=== PATIENT | female | born 1930 | race Caucasian/White ===

== ENCOUNTER 2020-09-05 14:29 | Inpatient (IN) | payer MEDICARE, OTHER ==
[~2020-09-05] VITALS: Ht 165.1 cm; Wt 54.6 kg
[~2020-09-05 14:29] MED LIST: ACET-868 PO; ALPR1TAB2 PO; AMIN887L7 PO; AMLO2.5T2 PO; AZAT50TA18 PO; BISA10SU11 RC; BROM1.7D9 EACHEYE; CALC500T63 PO; CHOL100040 PO; CITR30SO PO; CLON0.3P TD; DOCU-141 PO; FOLI0.8T2 PO; HYDR-4076 PO; LEVO50TA8 PO; MIRT15TA7 PO; NUT.237L85 PO; OMEG-88 PO; OMEP20CA15 PO; POLY15DR40 EACHEYE; SENN-261 PO
--- NOTE | 2020-09-05 14:39 | NUR ---
papo, from HD center, low bp 79/40, BS 243. On room air, connected to the monitor and pulse ox. kept comfortable, will continue to monitor accordingly.
[2020-09-05] MEDS ORDERED: ALBU2.5V38 NEB (15:00)
[2020-09-05] MEDS ORDERED: IV NS 0.9% 1,000 ML BAG IV ONE (15:00)
[2020-09-05] MEDS ORDERED: MEROPENEM 1 G in IV NS 0.9% 100 ML IV ONE (15:00)
[2020-09-05] MEDS ORDERED: VANCOMYCIN 1 GM in IV D5W 250 ML IV ONE (15:00)
[2020-09-05 15:01] LABS: BASOPHILS # (AUTO) 0.1 /CMM (0.0-0.2); BASOPHILS % (AUTO) 1.3 % (0.0-2.0); EOSINOPHILS % (AUTO) 2.2 % (0.0-6.0); HEMATOCRIT 27 % (33-45); HEMOGLOBIN 8.6 g/dL (11.5-14.8); LYMPHOCYTES # (AUTO) 0.7 /CMM (0.8-4.8); LYMPHOCYTES % (AUTO) 16.3 % (20.0-44.0); MEAN CORPUSCULAR HGB CONC 32 g/dl (31.0-36.0); MEAN CORPUSCULAR VOLUME 86 fL (82-100); MONOCYTES # (AUTO) 0.3 /CMM (0.1-1.30); MONOCYTES % (AUTO) 6.3 % (2.0-12.0); NEUTROPHILS # (AUTO) 3.2 /CMM (1.8-8.9); NEUTROPHILS % (AUTO) 73.9 % (43.0-81.0); PLATELET COUNT (AUTO) 322 /CMM (150-450); WHITE BLOOD COUNT (AUTO) 4.3 K/uL (4.3-11.0)
--- NOTE | 2020-09-05 15:04 | NUR ---
urine collected and sent to lab
--- NOTE | 2020-09-05 15:07 | NUR ---
PT IS WHEELED TO CT SCAN VIA [facility].
[2020-09-05 15:23] LABS: BILIRUBIN,URINE MODERATE (NEGATIVE); COLOR,URINE BROWN (YELLOW); LEUKOCYTE ESTERASE ,URINE MODERATE (NEGATIVE); NITRITE, URINE NEGATIVE (NEGATIVE); PH,URINE 6.5 (5.0-8.0); PROTEIN,URINE >=300 mg/dl (NEGATIVE); UGLUCOSE NEGATIVE (NEGATIVE); UROBILINOGEN,URINE 0.2 EU/dL (0.2)
[2020-09-05 15:30] LABS: CALCIUM, SERUM 8.6 mg/dL (8.5-10.1); CARBON DIOXIDE 24 mmol/L (21-32); CHLORIDE 101 mmol/L (98-107); CREATININE 5.5 mg/dL (0.6-1.3); GLUCOSE 138 mg/dL (74-106); POTASSIUM 4.1 mmol/L (3.5-5.1); SODIUM SERUM 137 mmol/L (136-145); UREA NITROGEN, BLOOD 25 mg/dL (7-18)
[2020-09-05 15:43] LABS: ALANINE AMINOTRANSFERASE < 6 U/L (12-78); ALBUMIN 1.9 g/dL (3.4-5.0); ALKALINE PHOSPHATASE 55 U/L (46-116); ASPARTATE AMINOTRANSFERASE 13 U/L (15-37); BILIRUBIN,DIRECT 0.1 mg/dL (0.0-0.2); BILIRUBIN,TOTAL 0.3 mg/dL (0.2-1.0); TOTAL PROTEIN, SERUM 6.5 g/dL (6.4-8.2)
[2020-09-05 15:50] LABS: RBC,URINE 21-50 /HPF (0-2); WBC,URINE 21-50 /HPF (0-3)
[2020-09-05 15:51] LABS: BACTERIA,URINE Many /HPF (None Seen); SQUAMOUS EPITHELIAL CELL,UR Few /HPF (None Seen)
--- NOTE | 2020-09-05 16:27 | NUR ---
CALLED [facility] [place]
--- NOTE | 2020-09-05 17:00 | NUR ---
ROOM GIVEN 114-2
--- NOTE | 2020-09-05 17:01 | NUR ---
Swabed for covid and sent it to the lab.
--- NOTE | 2020-09-05 17:10 | NUR ---
REPORT GIVEN TO MELITON HERRERA FOR GASPER.
[2020-09-05] MEDS ORDERED: MAG HYDROX/AL HYDROX/SIMETH 30 ML UDC PO PRN (17:30)
[2020-09-05] MEDS ORDERED: Z GUARD REMEDY 2 OZ OINT TP PRN (17:30)
[2020-09-05] MEDS ORDERED: ALBUTEROL FS 2.5 MG/3 ML VIAL.NEB NEB PRN (17:30)
[2020-09-05] MEDS ORDERED: ONDANSETRON HCL/PF 4 MG/2 ML VIAL IVP PRN (17:30)
[2020-09-05] MEDS ORDERED: ALPRAZOLAM 1 MG TABLET PO PRN (17:30)
[2020-09-05] MEDS ORDERED: ZOLPIDEM TARTRATE 5 MG TABLET PO PRN (17:30)
[2020-09-05] MEDS ORDERED: MAGNESIUM HYDROXIDE 30 ML UDC PO PRN (17:30)
[2020-09-05] MEDS ORDERED: ACETAMINOPHEN 325 MG TABLET PO PRN (17:30)
[2020-09-05] MEDS ORDERED: HYDROCODONE/APAP 5/325MG TABLET PO PRN (17:30)
[2020-09-05] MEDS ORDERED: BISACODYL SUPP (10 MG) 10 MG/SUPP.RECT SUPP.RECT RC PRN (17:30)
--- NOTE | 2020-09-05 17:30 | NUR ---
AIRWAYS OPERATIONS SPECIALIST NOTE RECEIVED PATIENT , RT HAND HLINATCT AND FLUSHED WELL , BODY CHECK DONE , VS TAKEN , ON RA ,NO SOB NOTED AT THIS TIME FROM ER WITH DX HYPOTENSION, AWAKE WITH CONFUSION , PLACED ON TELE MONITOR SR HR, BED IN LOWEST AND LOCKED POSITION , CALL LIGHT WITHIN REACH , ADMITTED UNDER CARE DR MONTGOMERY, BELONGING AT BEDSIDE , PLAN OF CARE DISCUSSED WITH PATIENT, NO SOB NOTED AT THIS TIME, WILL CONT TO MONITOR
[2020-09-05 17:35] VITALS: BP 128/62
--- NOTE | 2020-09-05 19:13 | NUR ---
RECEIVED PT IN BED ASLEEP EASY TO WAKE UP A/O X1, CONFUSED ON ROOM AIR TOLERATING WELL . O2 SAT 96% AT THIS TIME. NO SOB NO RESP DISTRESS NOTED. ON TELE MONITORING NSR WITH HR OF 80. DENIES PAIN. RIGHT HAND #20 PATENT AND FLUSHED C D I.HAVE RU CHEST HD CATH CLEAN DRESSING IS INTACT, SAFETY MEASURES IN PLACE. HOB ELEVATED. SIDE RAILS UP X3. BED LOCKED IN LOWEST POSITION. BED ALARM ON. WILL CONT TO MONITOR
[2020-09-05 20:00] VITALS: BP 100/52
[2020-09-05] MEDS ORDERED: MEROPENEM 1 G in IV NS 0.9% 100 ML IV SCH (21:00)
[2020-09-05] MEDS: MIRTAZAPINE 15 MG TABLET PO SCH (21:04)
[2020-09-05] MEDS: CITRIC ACID/SODIUM CITRATE (BICITRA)15 ML UDC PO SCH (21:04)
[2020-09-05] MEDS: SENNOSIDES 8.6 MG TABLET PO SCH (21:04)
[2020-09-06] VITALS: BP 103/64
--- NOTE | 2020-09-06 03:50 | NUR ---
REPORTED TO SHANICE HERNANDES NP ONCALL ABOUT THE PT HR GOES TO 120-130'S, AND SBP ON THE LOW 100'S, BP 98/58 WITH ORDER TO GIVE 500ML NS BOLUS X1 AND COLLECT THE AM LABS NOW, NOTED AND CARRIED OUT
[2020-09-06 04:00] VITALS: BP 98/58
[2020-09-06] MEDS ORDERED: IV NS 0.9% 500 ML IV ONE (04:30)
[2020-09-06 04:54] LABS: BASOPHILS # (AUTO) 0.1 /CMM (0.0-0.2); BASOPHILS % (AUTO) 0.8 % (0.0-2.0); EOSINOPHILS % (AUTO) 0.1 % (0.0-6.0); HEMATOCRIT 30 % (33-45); HEMOGLOBIN 9.4 g/dL (11.5-14.8); LYMPHOCYTES # (AUTO) 0.1 /CMM (0.8-4.8); LYMPHOCYTES % (AUTO) 1.1 % (20.0-44.0); MEAN CORPUSCULAR HGB CONC 32 g/dl (31.0-36.0); MEAN CORPUSCULAR VOLUME 85 fL (82-100); MONOCYTES # (AUTO) 0.3 /CMM (0.1-1.30); MONOCYTES % (AUTO) 2.8 % (2.0-12.0); NEUTROPHILS # (AUTO) 10.4 /CMM (1.8-8.9); NEUTROPHILS % (AUTO) 95.2 % (43.0-81.0); PLATELET COUNT (AUTO) 376 /CMM (150-450); RED BLOOD CELL COUNT(AUTO) 3.47 MIL/uL (4.0-5.2); WHITE BLOOD COUNT (AUTO) 10.9 K/uL (4.3-11.0)
[2020-09-06 05:08] LABS: CALCIUM, SERUM 8.8 mg/dL (8.5-10.1); CARBON DIOXIDE 24 mmol/L (21-32); CHLORIDE 103 mmol/L (98-107); CREATININE 5.7 mg/dL (0.6-1.3); GLUCOSE 127 mg/dL (74-106); MAGNESIUM 1.8 mg/dL (1.8-2.4); POTASSIUM 4.1 mmol/L (3.5-5.1); SODIUM SERUM 139 mmol/L (136-145); UREA NITROGEN, BLOOD 25 mg/dL (7-18)
--- NOTE | 2020-09-06 05:49 | NUR ---
BP RECHECKED 110/63 HR 114 PT STILL CONFUSED NO SIGN OF RESPIRATORY DISTRESS SPO2 95% VIA ROOM AIR WILL CONT TO MONITOR
[2020-09-06 06:17] LABS: CHOLESTEROL 200 mg/dL (<200); HDL CHOLESTEROL 41 mg/dL (40-60); LDL 120 mg/dL (0-99); TRIGLYCERIDES 211 mg/dL (30-150)
--- NOTE | 2020-09-06 06:55 | NUR ---
PT ON BED ASLEEP EASY TO WAKE UP STILL A/O X1 VERY CONFUSED, ON ROOM AIR SPO2 94-97% NO SOB NOTED, TELE MONITOR STILL READS SINUS TACHYCARDIA HR 110-120'S, ALL NEEDS ATTENDED, BED ON LOWEST POSITION AND LOCKED SIDE RAILS UP X2 CALL LIGHT WITHIN REACH WILL ENDORSED TO AM SHIFT NURSE
--- NOTE | 2020-09-06 07:30 | NUR ---
RN OPENING NOTES Patient is alert and responsive to verbal and physical stimuli. No s/s of respiratory distress. No c/o pain or discomfort. Patient is noted with right hand 20 gauze with no s/s of bleeding or infiltration. Per report patient is NPO except meds. Will continue to monitor. Call light with in reach.
[2020-09-06 08:00] VITALS: BP 128/62
[2020-09-06] MEDS ORDERED: DHA PO SCH (09:00)
[2020-09-06] MEDS ORDERED: FISH OIL PO SCH (09:00)
[2020-09-06] MEDS: PROSOURCE / PROSTAT (PYXIS) 30 ML UDC PO SCH ×2 (09:00→17:00)
[2020-09-06] MEDS: NEPRO VAN 237 ML CAN PO SCH ×2 (09:00→17:00)
[2020-09-06] MEDS ORDERED: EPA PO SCH (09:00)
[2020-09-06] MEDS ORDERED: [UNRECOGNIZED DRUG - OTHER] PO SCH (09:00)
[2020-09-06] MEDS ORDERED: OMEGA PO SCH (09:00)
[2020-09-06] MEDS: CHOLECALCIFEROL 1,000 UNIT TABLET (VIT D3) PO SCH (09:30)
[2020-09-06] MEDS: VIT B CMPLX 3/FA/VIT C/BIOTIN 1 TAB TABLET PO SCH (09:30)
[2020-09-06] MEDS: DOCUSATE SODIUM 100 MG CAPSULE PO SCH (09:30)
[2020-09-06] MEDS: CITRIC ACID/SODIUM CITRATE (BICITRA)15 ML UDC PO SCH ×6 (09:30→21:04)
[2020-09-06] MEDS: PANTOPRAZOLE 40 MG TABLET.DR PO SCH (09:30)
[2020-09-06] MEDS: LEVOTHYROXINE SODIUM 137 MCG TABLET PO SCH (09:35)
[2020-09-06 09:47] LABS: THYROID STIMULATING HORMONE 21.545 uIU/mL (0.358-3.74)
[2020-09-06] MEDS ORDERED: VANCOMYCIN 500 MG in IV D5W 100 ML IV PRN (10:00)
--- NOTE | 2020-09-06 10:00 | NUR ---
Received order from Dr Navas to change patient's diet to renal 60gm. Patient awake and alert, able to swallow without coughing.
[2020-09-06] MEDS: AZATHIOPRINE 50 MG TABLET PO SCH (11:53)
[2020-09-06] MEDS: POLYVINYL ALCOHOL 15 ML BOTTLE EACHEYE SCH ×3 (11:53→17:00)
[2020-09-06 12:00] VITALS: BP 126/65
[2020-09-06 16:00] VITALS: BP 128/60
[2020-09-06] MEDS: MEROPENEM 500 MG in IV NS 0.9% 50 ML IV SCH (17:04)
--- NOTE | 2020-09-06 19:15 | NUR ---
RECEIVED PT IN BED ASLEEP EASY TO WAKE UP A/O X1, CONFUSED ON ROOM AIR TOLERATING WELL . O2 SAT 93% AT THIS TIME. NO SOB NO RESP DISTRESS NOTED. ON TELE MONITORING NSR WITH HR OF 80. DENIES PAIN. RIGHT HAND #20 PATENT AND FLUSHED C D I.HAVE RU CHEST HD CATH CLEAN DRESSING IS INTACT, SAFETY MEASURES IN PLACE. HOB ELEVATED. SIDE RAILS UP X3. BED LOCKED IN LOWEST POSITION. BED ALARM ON. WILL CONT TO MONITOR
--- NOTE | 2020-09-06 19:18 | NUR ---
RN CLOSING NOTES Patient is alert and responsive to verbal and physical stimuli. No s/s of respiratory distress. No c/o pain or discomfort. Patient is noted with right hand 20 gauze with no s/s of bleeding or infiltration. Patient refused meal , offered x 3. Patient refused evening medication and started covering her face with sheet. Patient had HD done with output of 1600cc. Vancomycin hung post HD.Endorsed to next shift for GASPER.
[2020-09-06 20:00] VITALS: BP 111/52
[2020-09-06] MEDS: SENNOSIDES 8.6 MG TABLET PO SCH ×2 (21:04→21:10)
[2020-09-06] MEDS: MIRTAZAPINE 15 MG TABLET PO SCH ×2 (21:04→21:10)
--- NOTE | 2020-09-06 21:10 | NUR ---
UNABLE TO GIVE THE 2100 AND 0 MEDICATION PT REFUSING TO TAKE THE PO MEDICINE, SHE IS SPITTING IT OUT, PT IS VERY CONFUSED, KEEP ON DIRECTING BUT NO SUCCESS WILL CONT TO MONITOR THE PT
[2020-09-07] VITALS: BP 97/48
[2020-09-07 04:00] VITALS: BP 107/74
[2020-09-07 06:38] LABS: BASOPHILS # (AUTO) 0.1 /CMM (0.0-0.2); BASOPHILS % (AUTO) 0.7 % (0.0-2.0); EOSINOPHILS % (AUTO) 0.4 % (0.0-6.0); HEMATOCRIT 22 % (33-45); HEMOGLOBIN 7.1 g/dL (11.5-14.8); LYMPHOCYTES # (AUTO) 0.6 /CMM (0.8-4.8); LYMPHOCYTES % (AUTO) 5.8 % (20.0-44.0); MEAN CORPUSCULAR HGB CONC 33 g/dl (31.0-36.0); MEAN CORPUSCULAR VOLUME 84 fL (82-100); MONOCYTES # (AUTO) 0.5 /CMM (0.1-1.30); NEUTROPHILS # (AUTO) 8.6 /CMM (1.8-8.9); NEUTROPHILS % (AUTO) 88.1 % (43.0-81.0); PLATELET COUNT (AUTO) 310 /CMM (150-450); RED BLOOD CELL COUNT(AUTO) 2.58 MIL/uL (4.0-5.2); WHITE BLOOD COUNT (AUTO) 9.7 K/uL (4.3-11.0)
[2020-09-07 06:52] LABS: CALCIUM, SERUM 7.2 mg/dL (8.5-10.1); CARBON DIOXIDE 36 mmol/L (21-32); CHLORIDE 104 mmol/L (98-107); CREATININE 4.1 mg/dL (0.6-1.3); GLUCOSE 95 mg/dL (74-106); POTASSIUM 3.8 mmol/L (3.5-5.1); SODIUM SERUM 142 mmol/L (136-145); UREA NITROGEN, BLOOD 19 mg/dL (7-18)
--- NOTE | 2020-09-07 07:30 | NUR ---
RESEARCH DEVELOPMENT MANAGER AM NOTES RECEIVED PT IN BED, ASLEEP EASY TO WAKE UP A/O X1, CONFUSED ON 2L O2 NASAL CANULA. FARSI SPEAKING, O2 SAT 96% AT THIS TIME. NO SOB NO RESP DISTRESS NOTED. NSR ON MONITOR, HR 77. DENIES PAIN. RIGHT HAND #20 IV ACCESS, FLUSHES WELL, SITE CLEAR. RU CHEST HD CATH, CDI DRESSING, SEE NURSING FLOWSHEET FOR SKIN ISSUES, RENAL DIET, CRUSHED MEDS, NEEDS ASSIST IN TURNING AND REPOSITIONING, UNABLE TO UNDERSTAND PLAN OF CARE, SAFETY MEASURES IN PLACE. HOB ELEVATED. SIDE RAILS UP X3. BED LOCKED IN LOWEST POSITION. BED ALARM ON. CALL LIGHT WITHIN REACH,WILL CONT TO MONITOR
--- NOTE | 2020-09-07 07:46 | NUR ---
PT ON BED ASLEEP EASY TO WAKE UP STILL A/O X1 VERY CONFUSED, ON O2 2L VIA NC SPO2 92-94% NO SOB NOTED, TELE MONITOR STILL READS SINUS RHYTHM 80'S, ALL NEEDS ATTENDED, BED ON LOWEST POSITION AND LOCKED SIDE RAILS UP X2 CALL LIGHT WITHIN REACH WILL ENDORSED TO AM SHIFT NURSE
[2020-09-07] MEDS: PANTOPRAZOLE 40 MG TABLET.DR PO SCH (07:59)
[2020-09-07 08:00] VITALS: BP 105/58
[2020-09-07] MEDS: LEVOTHYROXINE SODIUM 137 MCG TABLET PO SCH (08:00)
--- NOTE | 2020-09-07 08:43 | NUR ---
PCR COVID RESULT NEGATIVE
[2020-09-07 09:17] LABS: IRON, SERUM 14 ug/dl (50-175); TOTAL IRON BINDING CAPACITY 64 ug/dl (250-450)
[2020-09-07 09:30] LABS: FERRITIN 597 ng/mL (8-388)
[2020-09-07] MEDS: CITRIC ACID/SODIUM CITRATE (BICITRA)15 ML UDC PO SCH ×4 (09:30→21:10)
[2020-09-07] MEDS: POLYVINYL ALCOHOL 15 ML BOTTLE EACHEYE SCH ×3 (09:30→16:11)
--- NOTE | 2020-09-07 09:30 | NUR ---
RN NOTES DUE MEDS GIVEN
[2020-09-07] MEDS: PROSOURCE / PROSTAT (PYXIS) 30 ML UDC PO SCH ×2 (09:31→16:11)
[2020-09-07] MEDS: CHOLECALCIFEROL 1,000 UNIT TABLET (VIT D3) PO SCH (09:31)
[2020-09-07] MEDS: DOCUSATE SODIUM 100 MG CAPSULE PO SCH (09:31)
[2020-09-07] MEDS: VIT B CMPLX 3/FA/VIT C/BIOTIN 1 TAB TABLET PO SCH (09:31)
[2020-09-07] MEDS: AZATHIOPRINE 50 MG TABLET PO SCH (09:31)
[2020-09-07] MEDS: NEPRO VAN 237 ML CAN PO SCH ×2 (09:32→16:16)
[2020-09-07 12:00] VITALS: BP 136/63
--- NOTE | 2020-09-07 12:37 | NUR ---
RN NOTES ROCIO CRAIG CRESTER FOR DR. DOLAN. AWARE OF PT'S HGB LEVEL 7.1. REPEAT BLOOD COUNT ORDERED BUT PATIENT REFUSED BLOOD DRAW. PER Rocio, ITS OK, WILL JUST TRY AGAIN TOMORROW. ATTEMPTED TO CALL [facility] - [facility], [facility] AT [phone]. NO ANSWER. LEFT MESSAGE
[2020-09-07 13:17] LABS: BASOPHILS # (AUTO) 0.1 /CMM (0.0-0.2); BASOPHILS % (AUTO) 0.7 % (0.0-2.0); EOSINOPHILS % (AUTO) 2.8 % (0.0-6.0); HEMATOCRIT 23 % (33-45); HEMOGLOBIN 7.4 g/dL (11.5-14.8); LYMPHOCYTES # (AUTO) 0.6 /CMM (0.8-4.8); LYMPHOCYTES % (AUTO) 6.9 % (20.0-44.0); MEAN CORPUSCULAR HGB CONC 32 g/dl (31.0-36.0); MEAN CORPUSCULAR VOLUME 84 fL (82-100); MONOCYTES # (AUTO) 0.5 /CMM (0.1-1.30); NEUTROPHILS # (AUTO) 7.7 /CMM (1.8-8.9); NEUTROPHILS % (AUTO) 84.6 % (43.0-81.0); PLATELET COUNT (AUTO) 331 /CMM (150-450); RED BLOOD CELL COUNT(AUTO) 2.73 MIL/uL (4.0-5.2); WHITE BLOOD COUNT (AUTO) 9.1 K/uL (4.3-11.0)
[2020-09-07] MEDS: MEROPENEM 500 MG in IV NS 0.9% 50 ML IV SCH (14:31)
[2020-09-07 16:32] VITALS: BP 108/58
--- NOTE | 2020-09-07 18:34 | NUR ---
IT RISK AND ASSURANCE MANAGER CLOSING NOTES PT RESTING IN BED, ASLEEP EASY TO WAKE UP A/O X1, CONFUSED ON 2L O2 NASAL CANULA. FARSI SPEAKING, O2 SAT 96% AT THIS TIME. NO SOB NO RESP DISTRESS NOTED. NSR ON MONITOR, HR 78. DENIES PAIN. RIGHT HAND #20 IV ACCESS, FLUSHES WELL, SITE CLEAR. RU CHEST HD CATH, CDI DRESSING, RENAL DIET, CRUSHED MEDS, ASSISTED TURNED AND REPOSITIONED Q [address] ME[address] IN PL[address]. HOB ELEVATED. SIDE RAILS UP X3. BED LOCKED IN LOWEST POSITION. BED ALARM ON. CALL LIGHT WITHIN REACH,ALL NEEDS MET, PM CARE DONE, WILL ENDORSE TO NEXT SHIFT FOR GASPER.
--- NOTE | 2020-09-07 19:30 | NUR ---
RN OPENING NOTES: RECEIVED FARSI SPEAKING PT A/OX1 IN BED RESTING COMFORTABLY. PATIENT IN NO S/SX OF ACUTE DISTRESS AT THIS TIME. NO SOB NOTED. PATIENT'S BREATHING IS EVEN AND UNLABORED. PATIENT IS ON 2L OF OXYGEN VIA NC; TOLERATING WELL. PATIENT ON TELE MONITORING READING SINUS RHYTHM HR IS @90 BPM AT THE TIME OF RECEIVED.PATIENT ON RENAL STANDARD DIET +CRUSHED MEDS; TOLERATES WELL. NOTED IV SITE ON R HAND # 20; PATENT, INTACT AND FLUSHING WELL; NO S/S OF INFECTION OR INFILTRATION. PT ALSO HAS R CW HD CATH SECURED AND INTACT. SAFETY MEASURES HAVE BEEN PROVIDED AND IMPLEMENTED. PATIENT BED ALARM IS ON. HEAD OF BED ELEVATED. BED IS LOCKED, IN LOWEST POSITION AND SIDE RAILS UP. CALL LIGHT WITHIN REACH OF THE PATIENT. APPLICABLE ISOLATION PRECAUTIONS IN PLACE. WILL CONTINUE TO MONITOR AND REASSESS FOR ANY CHANGES AND WILL CARRY OUT ANY ONGOING AND ACTIVE MD ORDER.
[2020-09-07 20:00] VITALS: BP 98/54
[2020-09-07] MEDS: MIRTAZAPINE 15 MG TABLET PO SCH (21:10)
[2020-09-07] MEDS: SENNOSIDES 8.6 MG TABLET PO SCH (21:10)
--- NOTE | 2020-09-07 23:00 | NUR ---
RN NOTES PATIENT REMAINS IN NO ACUTE RESPIRATORY DISTRESS AT THIS TIME, NO CHANGES TO CONDITION/STATUS. FUN HOUSE ATTENDANT WELL AWARE. WILL CONTINUE TO MONITOR AND REASSESS FOR ANY CHANGES THROUGHOUT THE SHIFT
[2020-09-08] VITALS: BP 133/62
--- NOTE | 2020-09-08 00:49 | NUR ---
RN OPENING NOTES: RECEIVED FARSI SPEAKING PT A/OX1 IN BED RESTING COMFORTABLY. PATIENT IN NO S/SX OF ACUTE DISTRESS AT THIS TIME. NO SOB NOTED. PATIENT'S BREATHING IS EVEN AND UNLABORED. PATIENT IS ON 2L OF OXYGEN VIA NC; TOLERATING WELL. PATIENT ON TELE MONITORING READING SINUS RHYTHM HR IS @90 BPM AT THE TIME OF RECEIVED.PATIENT ON RENAL STANDARD DIET +CRUSHED MEDS; TOLERATES WELL. NOTED IV SITE ON R HAND # 20; PATENT, INTACT AND FLUSHING WELL; NO S/S OF INFECTION OR INFILTRATION. PT ALSO HAS R CW HD CATH SECURED AND INTACT. SAFETY MEASURES HAVE BEEN PROVIDED AND IMPLEMENTED. PATIENT BED ALARM IS ON. HEAD OF BED ELEVATED. BED IS LOCKED, IN LOWEST POSITION AND SIDE RAILS UP. CALL LIGHT WITHIN REACH OF THE PATIENT. APPLICABLE ISOLATION PRECAUTIONS IN PLACE. WILL CONTINUE TO MONITOR AND REASSESS FOR ANY CHANGES AND WILL CARRY OUT ANY ONGOING AND ACTIVE MD ORDER. Addendum: 09/08/20 at 0053 by LEE COOK RN PLS DISREGARD WRONG TIME ENTRY
--- NOTE | 2020-09-08 03:00 | NUR ---
RN NOTES NO CHANGES IN PATIENT CONDITION AT THIS TIME PATIENT VITALS STABLE, NO SIGNS OF ACUTE RESPIRATORY DISTRESS. PATIENT STILL IN BED SLEEPING COMFORTABLY. NO COMPLAINTS OF PAIN OR ANY DISCOMFORT AT THIS TIME. WILL CONTINUE TO MONITOR AND REASSESS FOR ANY CHANGES THROUGHOUT THE SHIFT.
[2020-09-08 04:00] VITALS: BP 136/75
--- NOTE | 2020-09-08 06:00 | NUR ---
RN NOTES BOTTLE BOOTH ATTENDANT RAMONA REPORTED THAT PT REFUSED BLOOD DRAW FOR AM LAB FOR NOW, RN ACKNOWLEDGED. SHE SAID THEY WILL BE BACK AGAIN AROUND 7-8 FOR BLOOD DRAW. GOLF SALES ASSOCIATE MADE AWARE. WILL ALSO INFORM INCOMING SHIFT RN REGARDING THIS CONCERN.
--- NOTE | 2020-09-08 06:46 | NUR ---
RN NOTES SISAL PICKER REPORTED THAT PT REFUSED SCHEDULED XRAY. METAL MOLD DRESSER MADE AWARE. TECH MENTIONED THAT THEY WILL TRY IN HOUR TO CHECK IF PT WILL ALLOW DOING THE XRAY.
--- NOTE | 2020-09-08 06:52 | NUR ---
RN CLOSING NOTE: PATIENT REMAINS IN ROOM RESTING COMFORTABLY.NO SIGNS OF RESPIRATORY DISTRESS PATIENT STILL ON 2L VIA NC TOLERATING WELL SATURATING @ >93% SP02. PATIENT IS CLEAN , DRY AND COMFORTABLE THROUGHOUT THE SHIFT. ALL DUE MEDS GIVEN ORDERED ; PATIENT TOLERATED WELL. SAFETY MEASURES IMPLEMENTED, BED IN LOWEST POSITION, LOCKED, SIDE RAILS UP, CALL LIGHT WITHIN REACH. PATIENT ENDORSED TO INCOMING SHIFT RN WITH STABLE VITAL SIGN AND FOR CONTINUITY OF CARE. WILL ALSO INFORM INCOMING SHIFT THAT PT REFUSED AM TEST/PROCEDURES. INCOMING ASSISTANT PROFESSOR OF LIFE SCIENCES MADE AWARE.
[2020-09-08 08:00] VITALS: BP 125/69
[2020-09-08 08:40] LABS: BASOPHILS # (AUTO) 0.1 /CMM (0.0-0.2); BASOPHILS % (AUTO) 0.8 % (0.0-2.0); EOSINOPHILS % (AUTO) 5.8 % (0.0-6.0); HEMATOCRIT 26 % (33-45); HEMOGLOBIN 8.4 g/dL (11.5-14.8); LYMPHOCYTES # (AUTO) 0.8 /CMM (0.8-4.8); LYMPHOCYTES % (AUTO) 10.9 % (20.0-44.0); MEAN CORPUSCULAR HGB CONC 33 g/dl (31.0-36.0); MEAN CORPUSCULAR VOLUME 83 fL (82-100); MONOCYTES # (AUTO) 0.3 /CMM (0.1-1.30); MONOCYTES % (AUTO) 4.1 % (2.0-12.0); NEUTROPHILS # (AUTO) 5.8 /CMM (1.8-8.9); NEUTROPHILS % (AUTO) 78.4 % (43.0-81.0); PLATELET COUNT (AUTO) 378 /CMM (150-450); RED BLOOD CELL COUNT(AUTO) 3.09 MIL/uL (4.0-5.2); WHITE BLOOD COUNT (AUTO) 7.3 K/uL (4.3-11.0)
[2020-09-08 08:57] LABS: CALCIUM, SERUM 8.3 mg/dL (8.5-10.1); CARBON DIOXIDE 30 mmol/L (21-32); CHLORIDE 104 mmol/L (98-107); CREATININE 4.7 mg/dL (0.6-1.3); GLUCOSE 98 mg/dL (74-106); POTASSIUM 3.7 mmol/L (3.5-5.1); SODIUM SERUM 143 mmol/L (136-145); UREA NITROGEN, BLOOD 27 mg/dL (7-18)
[2020-09-08] MEDS: PROSOURCE / PROSTAT (PYXIS) 30 ML UDC PO SCH ×3 (09:00→17:00)
[2020-09-08] MEDS ORDERED: NITROFURANTOIN/NITROFURAN MAC 100 MG CAPSULE PO SCH (09:00)
[2020-09-08] MEDS ORDERED: LINEZOLID RTU BAG 600 MG in PREMIX 1 EA IV SCH (09:00)
[2020-09-08] MEDS: CITRIC ACID/SODIUM CITRATE (BICITRA)15 ML UDC PO SCH ×4 (09:57→21:00)
[2020-09-08] MEDS: CHOLECALCIFEROL 1,000 UNIT TABLET (VIT D3) PO SCH (09:58)
[2020-09-08] MEDS: LEVOTHYROXINE SODIUM 137 MCG TABLET PO SCH (09:58)
[2020-09-08] MEDS: PANTOPRAZOLE 40 MG TABLET.DR PO SCH (09:58)
[2020-09-08] MEDS: DOCUSATE SODIUM 100 MG CAPSULE PO SCH (09:58)
[2020-09-08] MEDS: POLYVINYL ALCOHOL 15 ML BOTTLE EACHEYE SCH ×3 (10:05→15:23)
[2020-09-08] MEDS: VIT B CMPLX 3/FA/VIT C/BIOTIN 1 TAB TABLET PO SCH (10:05)
[2020-09-08] MEDS: AZATHIOPRINE 50 MG TABLET PO SCH (10:06)
[2020-09-08] MEDS: NEPRO VAN 237 ML CAN PO SCH ×2 (10:06→17:00)
[2020-09-08] MEDS: LINEZOLID RTU BAG 600 MG in PREMIX 1 EA IV SCH (10:35)
[2020-09-08 12:00] VITALS: BP 117/61
[2020-09-08] MEDS: MEROPENEM 500 MG in IV NS 0.9% 50 ML IV SCH (15:22)
[2020-09-08 16:00] VITALS: BP 127/72
[2020-09-08 20:00] VITALS: BP 131/69
--- NOTE | 2020-09-08 20:23 | NUR ---
GABI/RN DURING INITIAL SHIFT ROUNDING, PATIENT WAS IN BED AWAKE,, CONFUSED, APPEAR COMFORTABLE, NO SIGNS OF DISTRESS NOTED, CALL LIGHT IN REACH, FALL PRECAUTIONS PER PROTOCOL, WILL MONITOR.
[2020-09-08] MEDS: SENNOSIDES 8.6 MG TABLET PO SCH (22:00)
[2020-09-09] MEDS: LINEZOLID RTU BAG 600 MG in PREMIX 1 EA IV SCH ×3 (00:23→21:53)
[2020-09-09 04:00] VITALS: BP 121/72
--- NOTE | 2020-09-09 05:30 | NUR ---
GABI/RN MORNING CARE WAS DONE, TOTAL LINEN CHANGE DONE, GOOD SKIN CARE DONE, REPOSITIONED TO COMFORT, WILL CONTINUE TO MONITOR.
[2020-09-09 06:25] LABS: BASOPHILS % (AUTO) 0.8 % (0.0-2.0); EOSINOPHILS % (AUTO) 5.6 % (0.0-6.0); HEMATOCRIT 23 % (33-45); HEMOGLOBIN 7.5 g/dL (11.5-14.8); LYMPHOCYTES # (AUTO) 0.8 /CMM (0.8-4.8); LYMPHOCYTES % (AUTO) 14.6 % (20.0-44.0); MEAN CORPUSCULAR HGB CONC 33 g/dl (31.0-36.0); MEAN CORPUSCULAR VOLUME 82 fL (82-100); MONOCYTES # (AUTO) 0.4 /CMM (0.1-1.30); MONOCYTES % (AUTO) 6.8 % (2.0-12.0); NEUTROPHILS % (AUTO) 72.2 % (43.0-81.0); PLATELET COUNT (AUTO) 361 /CMM (150-450); WHITE BLOOD COUNT (AUTO) 5.5 K/uL (4.3-11.0)
--- NOTE | 2020-09-09 06:30 | NUR ---
GABI/RN PATIENT IS STILL SLEEPING AT THIS TIME, APPEAR COMFORTABLE, NO SIGNS OF DISTRESS NOTED, GOOD SLEEP NOTED DURING THE SHIFT, ALL NEEDS ATTENDED AT THIS TIME, WILL CONTINUE TO MONITOR.
[2020-09-09 06:46] LABS: CALCIUM, SERUM 8.3 mg/dL (8.5-10.1); CARBON DIOXIDE 29 mmol/L (21-32); CHLORIDE 103 mmol/L (98-107); GLUCOSE 86 mg/dL (74-106); POTASSIUM 3.9 mmol/L (3.5-5.1); SODIUM SERUM 140 mmol/L (136-145); UREA NITROGEN, BLOOD 28 mg/dL (7-18)
--- NOTE | 2020-09-09 07:39 | NUR ---
RN OPENING NOTES Patient is alert and responsive to verbal stimuli. No c/o pain or discomfort. Patient noted with right wrist 20 gauze tko. Patient noted with HD site to right chest with no s/s of bleeding. Bed is in lowest and locked position. Call light with in reach.
[2020-09-09 08:00] VITALS: BP 137/59
[2020-09-09] MEDS: POLYVINYL ALCOHOL 15 ML BOTTLE EACHEYE SCH ×3 (09:26→17:28)
[2020-09-09] MEDS: CITRIC ACID/SODIUM CITRATE (BICITRA)15 ML UDC PO SCH ×5 (09:26→21:53)
[2020-09-09] MEDS: LEVOTHYROXINE SODIUM 137 MCG TABLET PO SCH (09:27)
[2020-09-09] MEDS: PANTOPRAZOLE 40 MG TABLET.DR PO SCH (09:27)
[2020-09-09] MEDS: CHOLECALCIFEROL 1,000 UNIT TABLET (VIT D3) PO SCH (09:27)
[2020-09-09] MEDS: DOCUSATE SODIUM 100 MG CAPSULE PO SCH (09:27)
[2020-09-09] MEDS: VIT B CMPLX 3/FA/VIT C/BIOTIN 1 TAB TABLET PO SCH (09:27)
[2020-09-09] MEDS: AZATHIOPRINE 50 MG TABLET PO SCH (09:27)
[2020-09-09] MEDS: PROSOURCE / PROSTAT (PYXIS) 30 ML UDC PO SCH ×2 (09:35→17:00)
[2020-09-09] MEDS: NEPRO VAN 237 ML CAN PO SCH ×2 (09:35→17:28)
[2020-09-09] MEDS ORDERED: ALTEPLASE CATHFLO 2 MG/VIAL IV ONE ×2 (10:00→11:00)
--- NOTE | 2020-09-09 10:00 | NUR ---
Encouraged meal intake and noted with 100 % intake of nepro and 25 % breakfast.
[2020-09-09 12:00] VITALS: BP 128/64
--- NOTE | 2020-09-09 14:00 | NUR ---
Patient received HD today. hd nurse by bedside.
[2020-09-09] MEDS: MEROPENEM 500 MG in IV NS 0.9% 50 ML IV SCH (15:33)
--- NOTE | 2020-09-09 19:07 | NUR ---
RN CLOSING NOTES Patient is alert and responsive to verbal stimuli. No c/o pain or discomfort. Patient noted with right wrist 20 gauze tko. Patient noted with HD site to right chest with no s/s of bleeding. Patient had HD output of 1 liter today.Noted with 2 Bm's during shift and urine x3.Bed is in lowest and locked position. Call light with in reach.Will endorse to next shift for GASPER.
--- NOTE | 2020-09-09 19:33 | NUR ---
MS-1/PATTERNMAKER PRESSURE CAST REPORT TO CUBA COELHO FOR CONT OF CARE. WILL TRANSFER TO ROOM 310-1.
[2020-09-09 20:00] VITALS: BP_SYST 127; BP_SYST 132; BP_DIAS 49; BP_DIAS 66
--- NOTE | 2020-09-09 20:05 | NUR ---
MS RN OPENING NOTES - TRANSFER RECEIVED REPORT FROM LOULOU AND PATIENT TRANSFERRED TO [place] 3W ROOM 310-2. PATIENT IN BED, A/OX2 WITH CONFUSION. ON ROOM AIR, TOLERATING WELL WITH NO SOB. DENIES PAIN OR DISCOMFORT AT THIS TIME. IV #20G TO RIGHT WRIST; PATENT AND INTACT. SAFETY PRECAUTIONS IN PLACE: BED IN LOWEST LOCKED POSITION; SIDERAILS UPX2; CALL LIGHT WITHIN REACH. BED ALARMS ON. PATIENT MEDICALLY STABLE.
[2020-09-09] MEDS: SENNOSIDES 8.6 MG TABLET PO SCH ×2 (21:53→22:00)
[2020-09-10 06:52] LABS: CALCIUM, SERUM 8.1 mg/dL (8.5-10.1); CARBON DIOXIDE 31 mmol/L (21-32); CHLORIDE 99 mmol/L (98-107); CREATININE 3.6 mg/dL (0.6-1.3); GLUCOSE 91 mg/dL (74-106); POTASSIUM 3.8 mmol/L (3.5-5.1); SODIUM SERUM 137 mmol/L (136-145); UREA NITROGEN, BLOOD 21 mg/dL (7-18)
--- NOTE | 2020-09-10 07:07 | NUR ---
MS RN CLOSING NOTES PATIENT A/OX1; FARSI SPEAKING; NOTED WITH CONFUSION. ON ROOM AIR, TOLERATING WELL WITH NO SOB. DENIES PAIN OR DISCOMFORT AT THIS TIME. IV #20G TO RIGHT WRIST; PATENT AND INTACT. SAFETY PRECAUTIONS IN PLACE: BED IN LOWEST LOCKED POSITION; SIDERAILS UPX2; CALL LIGHT WITHIN REACH. BED ALARMS ON. PATIENT MEDICALLY STABLE. WILL ENDORSE GASPER TO ONCOMING MORNING RN.
[2020-09-10] MEDS: LEVOTHYROXINE SODIUM 137 MCG TABLET PO SCH (07:30)
--- NOTE | 2020-09-10 07:31 | NUR ---
MS/RN Opening note Patient received from water valve mechanic. 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 Vital signs stable, no fever or shortness of breath. Heplock to right wrist flushing well with normal saline, no signs of infiltration. Safety measures in place, side rails X3 in upright position, brakes locked, call light within rech. Bed alarm switched on, will continue to monitor and ensure safety.
[2020-09-10 07:53] LABS: BASOPHILS # (AUTO) 0.1 /CMM (0.0-0.2); BASOPHILS % (AUTO) 1.6 % (0.0-2.0); EOSINOPHILS % (AUTO) 2.3 % (0.0-6.0); HEMATOCRIT 22 % (33-45); LYMPHOCYTES # (AUTO) 0.8 /CMM (0.8-4.8); MEAN CORPUSCULAR HGB CONC 33 g/dl (31.0-36.0); MEAN CORPUSCULAR VOLUME 82 fL (82-100); MONOCYTES # (AUTO) 0.6 /CMM (0.1-1.30); MONOCYTES % (AUTO) 9.6 % (2.0-12.0); NEUTROPHILS # (AUTO) 4.2 /CMM (1.8-8.9); NEUTROPHILS % (AUTO) 72.5 % (43.0-81.0); PLATELET COUNT (AUTO) 323 /CMM (150-450); RED BLOOD CELL COUNT(AUTO) 2.61 MIL/uL (4.0-5.2); WHITE BLOOD COUNT (AUTO) 5.8 K/uL (4.3-11.0)
[2020-09-10 08:00] VITALS: BP 107/65
[2020-09-10] MEDS: VIT B CMPLX 3/FA/VIT C/BIOTIN 1 TAB TABLET PO SCH (08:08)
[2020-09-10] MEDS: CHOLECALCIFEROL 1,000 UNIT TABLET (VIT D3) PO SCH (08:08)
[2020-09-10] MEDS: DOCUSATE SODIUM 100 MG CAPSULE PO SCH (08:08)
[2020-09-10] MEDS: PANTOPRAZOLE 40 MG TABLET.DR PO SCH (08:09)
[2020-09-10] MEDS: CITRIC ACID/SODIUM CITRATE (BICITRA)15 ML UDC PO SCH ×4 (08:10→21:48)
[2020-09-10] MEDS: POLYVINYL ALCOHOL 15 ML BOTTLE EACHEYE SCH ×3 (08:11→16:51)
[2020-09-10] MEDS: AZATHIOPRINE 50 MG TABLET PO SCH (08:12)
[2020-09-10] MEDS: NEPRO VAN 237 ML CAN PO SCH ×2 (08:12→16:52)
[2020-09-10] MEDS: LINEZOLID RTU BAG 600 MG in PREMIX 1 EA IV SCH ×2 (08:12→21:47)
[2020-09-10] MEDS: PROSOURCE / PROSTAT (PYXIS) 30 ML UDC PO SCH ×2 (08:15→16:52)
--- NOTE | 2020-09-10 09:30 | NUR ---
MS/RN S/B Dr Navas Seen by MD - patient to remain in the hospital, awaiting SNF to arrange isolation bed.
--- NOTE | 2020-09-10 10:30 | NUR ---
MS/RN S/B Dr Morrow Seen by MD - aware of low hemaglobin, no orders given to transfuse.
--- NOTE | 2020-09-10 11:00 | NUR ---
MS/RN Chest x-ray Chest x-ray result shows bilateral infiltrates, worse than previous exam.
--- NOTE | 2020-09-10 15:22 | NUR ---
MS/assistant wrestling coach HDX at bedside, vital sings stable throughout, one liter fluid removed.
[2020-09-10 16:00] VITALS: BP_SYST 114; BP_SYST 129; BP_DIAS 55; BP_DIAS 63
[2020-09-10] MEDS: MEROPENEM 500 MG in IV NS 0.9% 50 ML IV SCH (16:18)
--- NOTE | 2020-09-10 18:41 | NUR ---
MS/RN End note Patient remains in stable condition. All medications administered as ordered. Will endorse to retail assistant store manager.
--- NOTE | 2020-09-10 19:35 | NUR ---
MS RN OPENING NOTES PATIENT A/OX1; FARSI SPEAKING; NOTED WITH CONFUSION. ON ROOM AIR, TOLERATING WELL WITH NO SOB. DENIES PAIN OR DISCOMFORT AT THIS TIME. IV #20G TO RIGHT WRIST; PATENT AND INTACT. HD PERMACATH TO RIGHT CHEST WALL INTACT; DRESSING C/D/I. SAFETY PRECAUTIONS IN PLACE: BED IN LOWEST LOCKED POSITION; SIDERAILS UPX2; CALL LIGHT WITHIN REACH. BED ALARMS ON. PATIENT MEDICALLY STABLE. WILL ENDORSE GASPER TO ONCOMING MORNING RN.
[2020-09-10 20:28] VITALS: BP 139/96
[2020-09-10] MEDS: SENNOSIDES 8.6 MG TABLET PO SCH (21:48)
--- NOTE | 2020-09-11 06:32 | NUR ---
MS COELHO OPENING NOTES PATIENT A/OX1; FARSI SPEAKING; NOTED WITH CONFUSION. ON ROOM AIR, TOLERATING WELL WITH NO SOB. DENIES PAIN OR DISCOMFORT AT THIS TIME. IV #20G TO RIGHT WRIST; PATENT AND INTACT. HD PERMACATH TO RIGHT CHEST WALL INTACT; DRESSING C/D/I. SAFETY PRECAUTIONS IN PLACE: BED IN LOWEST LOCKED POSITION; SIDERAILS UPX2; CALL LIGHT WITHIN REACH. BED ALARMS ON. PATIENT MEDICALLY STABLE. WILL ENDORSE GASPER TO ONCOMING MORNING RN. Addendum: 09/11/20 at 0633 by CUBA VIDES RN UPDATE: MS COELHO CLOSING NOTES
[2020-09-11 06:42] LABS: BASOPHILS # (AUTO) 0.1 /CMM (0.0-0.2); BASOPHILS % (AUTO) 1.6 % (0.0-2.0); EOSINOPHILS % (AUTO) 4.5 % (0.0-6.0); HEMATOCRIT 22 % (33-45); LYMPHOCYTES # (AUTO) 1.1 /CMM (0.8-4.8); LYMPHOCYTES % (AUTO) 19.1 % (20.0-44.0); MEAN CORPUSCULAR HGB CONC 32 g/dl (31.0-36.0); MEAN CORPUSCULAR VOLUME 84 fL (82-100); MONOCYTES # (AUTO) 0.5 /CMM (0.1-1.30); MONOCYTES % (AUTO) 9.7 % (2.0-12.0); NEUTROPHILS # (AUTO) 3.6 /CMM (1.8-8.9); NEUTROPHILS % (AUTO) 65.1 % (43.0-81.0); PLATELET COUNT (AUTO) 304 /CMM (150-450); RED BLOOD CELL COUNT(AUTO) 2.57 MIL/uL (4.0-5.2); WHITE BLOOD COUNT (AUTO) 5.6 K/uL (4.3-11.0)
[2020-09-11 07:02] LABS: CALCIUM, SERUM 8.5 mg/dL (8.5-10.1); CARBON DIOXIDE 31 mmol/L (21-32); CHLORIDE 101 mmol/L (98-107); CREATININE 3.2 mg/dL (0.6-1.3); GLUCOSE 94 mg/dL (74-106); POTASSIUM 3.5 mmol/L (3.5-5.1); SODIUM SERUM 136 mmol/L (136-145); UREA NITROGEN, BLOOD 19 mg/dL (7-18)
--- NOTE | 2020-09-11 07:51 | NUR ---
MS RN OPENING NOTE PATIENT IS IN BED RESTING, IN NO ACUTE DISTRESS. PATIENT IS ON ROOM AIR, TOLERATING WELL, NO SOB NOTED. PATIENT IS CONFUSED AND NON PASHTO SPEAKING. SAFETY PRECAUTIONS ARE ON. BED IS LOCKED IN THE LOWEST POSITION, WITH SIDE RAILS UP, CALL LIGHT WITHIN REACH. WILL CONTINUE TO MONITOR CLOSELY THROUGHOUT THE SHIFT.
[2020-09-11 08:00] VITALS: BP 118/83
[2020-09-11] MEDS: PANTOPRAZOLE 40 MG TABLET.DR PO SCH (08:06)
[2020-09-11] MEDS: DOCUSATE SODIUM 100 MG CAPSULE PO SCH (08:06)
[2020-09-11] MEDS: AZATHIOPRINE 50 MG TABLET PO SCH (08:06)
[2020-09-11] MEDS: CHOLECALCIFEROL 1,000 UNIT TABLET (VIT D3) PO SCH (08:06)
[2020-09-11] MEDS: CITRIC ACID/SODIUM CITRATE (BICITRA)15 ML UDC PO SCH ×4 (08:06→21:07)
[2020-09-11] MEDS: LEVOTHYROXINE SODIUM 137 MCG TABLET PO SCH (08:07)
[2020-09-11] MEDS: PROSOURCE / PROSTAT (PYXIS) 30 ML UDC PO SCH ×2 (08:08→17:22)
[2020-09-11] MEDS: NEPRO VAN 237 ML CAN PO SCH ×2 (08:08→17:22)
[2020-09-11] MEDS: POLYVINYL ALCOHOL 15 ML BOTTLE EACHEYE SCH ×3 (08:08→17:22)
[2020-09-11] MEDS: LINEZOLID 600 MG TABLET PO SCH ×2 (08:08→21:07)
[2020-09-11] MEDS: VIT B CMPLX 3/FA/VIT C/BIOTIN 1 TAB TABLET PO SCH (08:13)
--- NOTE | 2020-09-11 10:13 | NUR ---
WOUND CARE CONSULT: PT PRESENTS WITH SACRAL SCARRING AND INCONTINENCE, PRESENT ON ADMISSION. RECOMMENDATIONS MADE FOR SKIN PROTECTION. DISCUSSED WITH NURSING STAFF. PT ASSISTS WITH TURNING AND REPOSITIONING IN BED. MD IN AGREEMENT WITH PLAN OF CARE.
[2020-09-11] MEDS: MEROPENEM 500 MG in IV NS 0.9% 50 ML IV SCH (14:06)
[2020-09-11] MEDS ORDERED: LEVOFLOXACIN 500 MG /D5W 100ML 100 ML IV SCH (15:30)
[2020-09-11 16:00] VITALS: BP 104/45
[2020-09-11] MEDS ORDERED: LEVOFLOXACIN 750 MG /D5W 150ML 750 MG in PREMIX 1 EA IV ONE (18:00)
--- NOTE | 2020-09-11 18:57 | NUR ---
MS RN CLOSING NOTE PATIENT IS IN BED RESTING, IN NO ACUTE DISTRESS. PATIENT IS ON ROOM AIR, TOLERATING WELL, NO SOB NOTED. PATIENT IS CONFUSED. SAFETY PRECAUTIONS ARE ON. BED IS LOCKED IN THE LOWEST POSITION, WITH SIDE RAILS UP, CALL LIGHT WITHIN REACH. ENDORSE PATIENT TO DIRECTOR OF VOLUNTEER SERVICES NURSE FOR GASPER.
--- NOTE | 2020-09-11 19:30 | NUR ---
MS RN OPENING NOTE RECEIVED PATIENT IN BED. A/OX1. TOLERATING ROOM AIR. RESPIRATIONS ARE EVEN AND UNLABORED. NO S/S SOB NOTED. NO C/O PAIN NOTED. IN NO APPARENT DISTRESS. IV ACCESS IN RIGHT WRIST #20 PATENT AND SALINE LOCKED. BED IS LOW AND LOCKED, HOB ELEVATED IN SEMI FOWLERS, SIDE RAILS SUP X2, CALL LIGHT WITHIN REACH. WILL CONTINUE TO MONITOR THROUGHOUT SHIFT.
[2020-09-11 20:00] VITALS: BP 91/53
[2020-09-11] MEDS: SENNOSIDES 8.6 MG TABLET PO SCH (21:07)
--- NOTE | 2020-09-12 06:38 | NUR ---
MS RN CLOSING NOTE PATIENT RESTING IN BED. A/OX1. REMAINS TOLERATING ROOM AIR. NO RESP DISTRESS. NO C/O PAIN THROUGHOUT SHIFT. NO DISTRESS. IV ACCESS MAINTAINED IN RIGHT WRIST #20 . BED REMAINS LOW AND LOCKED, HOB ELEVATED IN SEMI FOWLERS, SIDE RAILS SUP X2, CALL LIGHT WITHIN REACH. WILL ENDORSE TO ONCOMING SHIFT
--- NOTE | 2020-09-12 07:45 | NUR ---
MS RN OPENING NOTE PATIENT IS IN BED RESTING, IN NO ACUTE DISTRESS. PATIENT IS ON ROOM AIR, TOLERATING WELL, NO SOB NOTED. PATIENT IS CONFUSED AND FARSI SPEAKING. SAFETY PRECAUTIONS ARE ON. BED IS LOCKED IN THE LOWEST POSITION, WITH SIDE RAILS UP, CALL LIGHT WITHIN REACH. WILL CONTINUE TO MONITOR CLOSELY THROUGHOUT THE SHIFT.
[2020-09-12 08:00] VITALS: BP 120/51
[2020-09-12] MEDS: CITRIC ACID/SODIUM CITRATE (BICITRA)15 ML UDC PO SCH ×4 (08:20→21:00)
[2020-09-12] MEDS: LEVOTHYROXINE SODIUM 137 MCG TABLET PO SCH (08:21)
[2020-09-12] MEDS: CHOLECALCIFEROL 1,000 UNIT TABLET (VIT D3) PO SCH (08:21)
[2020-09-12] MEDS: VIT B CMPLX 3/FA/VIT C/BIOTIN 1 TAB TABLET PO SCH (08:21)
[2020-09-12] MEDS: LINEZOLID 600 MG TABLET PO SCH ×2 (08:21→21:00)
[2020-09-12] MEDS: DOCUSATE SODIUM 100 MG CAPSULE PO SCH (08:21)
[2020-09-12] MEDS: PANTOPRAZOLE 40 MG TABLET.DR PO SCH (08:21)
[2020-09-12] MEDS: POLYVINYL ALCOHOL 15 ML BOTTLE EACHEYE SCH ×3 (08:22→16:23)
[2020-09-12] MEDS: PROSOURCE / PROSTAT (PYXIS) 30 ML UDC PO SCH ×2 (08:22→16:23)
[2020-09-12] MEDS: AZATHIOPRINE 50 MG TABLET PO SCH (08:22)
[2020-09-12] MEDS: NEPRO VAN 237 ML CAN PO SCH ×2 (08:22→16:23)
[2020-09-12] MEDS: MEROPENEM 500 MG in IV NS 0.9% 50 ML IV SCH (15:31)
[2020-09-12 16:00] VITALS: BP 131/63
[2020-09-12] MEDS: LEVOFLOXACIN 250 MG /D5W 50 ML 250 MG in PREMIX 1 EA IV SCH ×2 (17:47→18:43)
--- NOTE | 2020-09-12 18:50 | NUR ---
MS RN NOTE PATIENT HAD AN EPISODE OF VOMITING DURING DIALYSIS, BLOOD PRESSURE IS 117/59, PULSE 68, TEMPERATURE 97.7. WESLEY LAUREN WILL REASSESS.
--- NOTE | 2020-09-12 19:17 | NUR ---
MS RN CLOSING NOTE PATIENT IS IN BED RESTING, PATIENT IS FEELING NAUSEOUS, VITALS ARE WITHIN NORMAL LIMITS. ZOFRAN GIVEN. PATIENT IS ON ROOM AIR, TOLERATING WELL, NO SOB NOTED. PATIENT IS CONFUSED. SAFETY PRECAUTIONS ARE ON. BED IS LOCKED IN THE LOWEST POSITION, WITH SIDE RAILS UP, CALL LIGHT WITHIN REACH. ENDORSE PATIENT TO COUNTER INTELLIGENCE TECHNICIAN NURSE FOR GASPER.
[2020-09-12 21:06] VITALS: BP 108/40
[2020-09-12] MEDS: SENNOSIDES 8.6 MG TABLET PO SCH (22:00)
--- NOTE | 2020-09-12 22:00 | NUR ---
MS/TELE/RN PATIENT REFUSED BEDTIME MEDS.
--- NOTE | 2020-09-13 06:12 | NUR ---
MS/TELE/RN PATIENT IS STILL SLEEPING, APPEAR COMFORTABLE, NO SIGNS OF DISTRESS NOTED, ON AND OFF SLEEP NOTED DURING THE SHIFT, ALL NEEDS ATTENDED AT THIS TIME, WILL CONTINUE TO MONITOR.
--- NOTE | 2020-09-13 07:15 | NUR ---
MS RN OPENING NOTE RECEIVED PATIENT IN BED. A/O X1. FARSI SPEAKING. ON ROOM AIR, TOLERATING WELL. NO SOB NOTED. NO S/S OF RESPIRATORY DISTRESS. DENIES ANY PAIN AND DISCOMFORT AT THIS TIME. IV ACCESS ON R WRIST #20 G, INTACT. HD CATH ON THE R CHEST, INTACT, DRESSING C/D/I. SAFETY MEASURES MAINTAINED. BED IN LOWEST POSITION, BRAKES LOCKED. SIDE RAILS UP X2. CALL LIGHT WITHIN REACH. WILL CONTINUE PLAN OF CARE.
[2020-09-13] MEDS: PANTOPRAZOLE 40 MG TABLET.DR PO SCH (07:30)
[2020-09-13] MEDS: LEVOTHYROXINE SODIUM 137 MCG TABLET PO SCH (07:30)
[2020-09-13 07:33] LABS: CALCIUM, SERUM 8.3 mg/dL (8.5-10.1); CARBON DIOXIDE 31 mmol/L (21-32); CHLORIDE 103 mmol/L (98-107); CREATININE 3.1 mg/dL (0.6-1.3); GLUCOSE 93 mg/dL (74-106); MAGNESIUM 1.9 mg/dL (1.8-2.4); PHOSPHORUS 2.5 mg/dL (2.5-4.9); POTASSIUM 4.1 mmol/L (3.5-5.1); SODIUM SERUM 139 mmol/L (136-145); UREA NITROGEN, BLOOD 18 mg/dL (7-18)
[2020-09-13 08:00] VITALS: BP 109/56
[2020-09-13] MEDS: POLYVINYL ALCOHOL 15 ML BOTTLE EACHEYE SCH ×3 (09:00→16:22)
[2020-09-13] MEDS: PROSOURCE / PROSTAT (PYXIS) 30 ML UDC PO SCH ×2 (09:00→16:22)
[2020-09-13] MEDS: DOCUSATE SODIUM 100 MG CAPSULE PO SCH (09:00)
[2020-09-13] MEDS: VIT B CMPLX 3/FA/VIT C/BIOTIN 1 TAB TABLET PO SCH (09:00)
[2020-09-13] MEDS: CHOLECALCIFEROL 1,000 UNIT TABLET (VIT D3) PO SCH (09:00)
[2020-09-13] MEDS: NEPRO VAN 237 ML CAN PO SCH ×2 (09:00→16:15)
[2020-09-13] MEDS: AZATHIOPRINE 50 MG TABLET PO SCH (09:00)
[2020-09-13] MEDS: CITRIC ACID/SODIUM CITRATE (BICITRA)15 ML UDC PO SCH ×4 (09:00→21:00)
--- NOTE | 2020-09-13 09:19 | NUR ---
MS RN NOTES PATIENT REFUSED ALL AM MEDICATIONS. EXPLAIN RISKS AND BENEFITS YET PT INSISTED NOT TO TAKE IT.
[2020-09-13] MEDS ORDERED: MERO500P IV (10:19)
[2020-09-13] MEDS ORDERED: LEVO250T59 PO (10:19)
[2020-09-13 10:35] LABS: BASOPHILS % (AUTO) 0.8 % (0.0-2.0); EOSINOPHILS % (AUTO) 1.1 % (0.0-6.0); LYMPHOCYTES # (AUTO) 1.2 /CMM (0.8-4.8); LYMPHOCYTES % (AUTO) 19.8 % (20.0-44.0); MEAN CORPUSCULAR HGB CONC 32 g/dl (31.0-36.0); MEAN CORPUSCULAR VOLUME 87 fL (82-100); MONOCYTES # (AUTO) 0.5 /CMM (0.1-1.30); MONOCYTES % (AUTO) 7.6 % (2.0-12.0); NEUTROPHILS # (AUTO) 4.4 /CMM (1.8-8.9); NEUTROPHILS % (AUTO) 70.7 % (43.0-81.0); PLATELET COUNT (AUTO) 265 /CMM (150-450); WHITE BLOOD COUNT (AUTO) 6.3 K/uL (4.3-11.0)
[2020-09-13 10:39] LABS: RED BLOOD CELL COUNT(AUTO) 1.88 MIL/uL (4.0-5.2)
[2020-09-13 10:41] LABS: HEMATOCRIT 16 % (33-45); HEMOGLOBIN 5.3 g/dL (11.5-14.8)
--- NOTE | 2020-09-13 10:50 | NUR ---
MS RN NOTES LAB CALLED FOR A CRITICAL VALUE H/H 5.3/. SPOKE WITH CHANDANA. ANGELINE SAEED IS MADE AWARE. ORDERED 1 U OF PRBC. CBC AND BMP TOMORROW. HOLD D/C UNTIL TOMORROW.
--- NOTE | 2020-09-13 11:46 | NUR ---
MS RN NOTES NEEDS BLOOD TRANSFUSION CONSENT FOR THE PT. CALLED ISMAEL HOLLIS BUT NOW ANSWERING THE PHONE. LEFT A VOICE MESSAGE AND CALL BACK NO. WILL CONTINUE TO FOLLOW UP.
--- NOTE | 2020-09-13 13:30 | NUR ---
MS RN NOTES INFORMED ANGELINE SAEED THAT WE'RE UNABLE TO CONTACT THE FAMILY FOR THE BLOOD CONSENT. ANGELINE SAEED AND JUSTINE BECKHAM SIGNED THE CONSENT INSTEAD.
[2020-09-13] MEDS: MEROPENEM 500 MG in IV NS 0.9% 50 ML IV SCH (15:26)
[2020-09-13] MEDS: LEVOFLOXACIN 250 MG /D5W 50 ML 250 MG in PREMIX 1 EA IV SCH (17:03)
--- NOTE | 2020-09-13 18:43 | NUR ---
MS RN CLOSING NOTE RECEIVED PATIENT IN BED. A/O X1. FARSI SPEAKING. ON ROOM AIR, TOLERATING WELL. NO SOB NOTED. IN NO APPARENT DISTRESS. DISTRESS. IV ACCESS ON R WRIST #20 G, INTACT AND PATENT. ABLE TO MAKE NEEDS KNOWN. ROUTINE MEDS WERE GIVEN ORDERED. HD CATH ON THE R CHEST, INTACT, DRESSING C/D/I. FOR 1 U PRBC BLOOD TRANSFUSION - JUST WAITING FOR THE BLOOD FROM THE LAB. HOLE D/C UNTIL TOMORROW PER ANGELINE MANAGER ONCOLOGY. SAFETY MEASURES MAINTAINED. BED IN LOWEST POSITION, BRAKES LOCKED. SIDE RAILS UP X2. CALL LIGHT WITHIN REACH. WILL ENDORSE PLAN OF CARE TO ONCOMING SHIFT.
[2020-09-13 20:00] VITALS: BP 116/60
[2020-09-13] MEDS: SENNOSIDES 8.6 MG TABLET PO SCH (22:00)
[2020-09-13 23:17] VITALS: BP 97/54
--- NOTE | 2020-09-13 23:19 | NUR ---
MS/TELE/RN BLOOD TRANSFUSION STARTED,
[2020-09-13 23:35] VITALS: BP 101/46
[2020-09-14] VITALS (13 sets, daily range): BP systolic 95–155; BP diastolic 42–110
--- NOTE | 2020-09-14 02:22 | NUR ---
MS/TELE/RN BLOOD TRANSFUSION IS FINISHED, VITAL SIGNS STABLE, AFEBRILE, NO REACTION NOTED, WILL CONTINUE TO MONITOR.
--- NOTE | 2020-09-14 06:40 | NUR ---
MS/TELE/RN PATIENT IS STILL SLEEPING AT THIS TIME, APPEAR COMFORTABLE, NO SIGNS OF DISTRESS NOTED, CALL LIGHT IN REACH. ALL NEEDS ATTENDED AT THIS TIME, WILL CONTINUE TO MONITOR.
[2020-09-14] MEDS: PANTOPRAZOLE 40 MG TABLET.DR PO SCH (07:30)
[2020-09-14] MEDS: LEVOTHYROXINE SODIUM 137 MCG TABLET PO SCH (07:30)
--- NOTE | 2020-09-14 07:35 | NUR ---
MS RN OPENING NOTE RECEIVED PATIENT IN BED. A/O X1. FARSI SPEAKING. ON ROOM AIR, NO SOB NOTED. IN NO APPARENT DISTRESS. IV ACCESS ON L FA #22 G, INTACT. HD CATH ON THE R CHEST, DRESSING C/D/I. SAFETY MEASURES MAINTAINED. BED IN LOWEST POSITION, BRAKES LOCKED. SIDE RAILS UP X2. CALL LIGHT WITHIN REACH. WILL CONTINUE PLAN OF CARE.
[2020-09-14] MEDS: POLYVINYL ALCOHOL 15 ML BOTTLE EACHEYE SCH ×3 (08:58→16:33)
[2020-09-14] MEDS: DOCUSATE SODIUM 100 MG CAPSULE PO SCH (08:59)
[2020-09-14] MEDS: VIT B CMPLX 3/FA/VIT C/BIOTIN 1 TAB TABLET PO SCH (08:59)
[2020-09-14] MEDS: CITRIC ACID/SODIUM CITRATE (BICITRA)15 ML UDC PO SCH ×4 (08:59→21:52)
[2020-09-14] MEDS: AZATHIOPRINE 50 MG TABLET PO SCH (08:59)
[2020-09-14] MEDS: PROSOURCE / PROSTAT (PYXIS) 30 ML UDC PO SCH ×2 (08:59→16:34)
[2020-09-14] MEDS: CHOLECALCIFEROL 1,000 UNIT TABLET (VIT D3) PO SCH (08:59)
[2020-09-14] MEDS: NEPRO VAN 237 ML CAN PO SCH ×2 (08:59→16:34)
--- NOTE | 2020-09-14 09:01 | NUR ---
MS RN NOTE PATIENT IS UNCOOPERATIVE. STILL REFUSED HER AM MEDICATIONS. REINFORCED TEACHING, EXPLAINED RISKS AND BENEFITS.
[2020-09-14 09:58] LABS: CALCIUM, SERUM 8.7 mg/dL (8.5-10.1); CARBON DIOXIDE 30 mmol/L (21-32); CHLORIDE 103 mmol/L (98-107); CREATININE 3.9 mg/dL (0.6-1.3); GLUCOSE 99 mg/dL (74-106); POTASSIUM 3.8 mmol/L (3.5-5.1); SODIUM SERUM 140 mmol/L (136-145); UREA NITROGEN, BLOOD 31 mg/dL (7-18)
[2020-09-14 10:45] LABS: BASOPHILS # (AUTO) 0.1 /CMM (0.0-0.2); BASOPHILS % (AUTO) 1.2 % (0.0-2.0); EOSINOPHILS % (AUTO) 1.7 % (0.0-6.0); LYMPHOCYTES # (AUTO) 1.1 /CMM (0.8-4.8); LYMPHOCYTES % (AUTO) 21.6 % (20.0-44.0); MEAN CORPUSCULAR HGB CONC 33 g/dl (31.0-36.0); MEAN CORPUSCULAR VOLUME 90 fL (82-100); MONOCYTES # (AUTO) 0.4 /CMM (0.1-1.30); MONOCYTES % (AUTO) 8.1 % (2.0-12.0); NEUTROPHILS # (AUTO) 3.5 /CMM (1.8-8.9); NEUTROPHILS % (AUTO) 67.4 % (43.0-81.0); PLATELET COUNT (AUTO) 259 /CMM (150-450); WHITE BLOOD COUNT (AUTO) 5.3 K/uL (4.3-11.0)
[2020-09-14 11:34] LABS: RED BLOOD CELL COUNT(AUTO) 1.74 MIL/uL (4.0-5.2)
[2020-09-14 11:36] LABS: HEMOGLOBIN 5.1 g/dL (11.5-14.8)
[2020-09-14 11:37] LABS: HEMATOCRIT 16 % (33-45)
--- NOTE | 2020-09-14 11:46 | NUR ---
MS RN NOTE LAB CALLED, SPOKE WITH JACY, PT HAS A CRITICAL LAB VALUE H/H 5.16 - JEAN ORDERED REPEAT H/H BLOOD DRAW, IF <7 TRANSFUSE 2 UNITS OF PRBC.
[2020-09-14 13:03] LABS: EOSINOPHILS % (MANUAL) 2 % (0-4); LYMPHOCYTES % (MANUAL) 19 % (16-48); MONOCYTES % (MANUAL) 6 % (0-11.0); NEUTROPHILS % (MANUAL) 73 (42-76)
[2020-09-14 13:26] LABS: HEMOGLOBIN 4.9 g/dL (11.5-14.8)
--- NOTE | 2020-09-14 13:38 | NUR ---
MS RN NOTE LAB CALLED FOR REPEAT H/H RESULT, Hgb 4.9 Hct 15. ANGELINE SAEED IS MADE AWARE AND ORDERED TO TRANSFUSE 2 U OF PRBC AND STAT OCCULT BLOOD. PATIENT ASSESSED DOESN'T SEEM TO BE IN ANY DISTRESS BUT VERBALIZED THAT SHE'S FEELING COLD. GAVE HER WARM BLANKETS AND ADJUSTED THE ROOM TEMPERATURE. WILL CONTINUE TO MONITOR THROUGHOUT THE SHIFT. Addendum: 09/14/20 at 1620 by DARINEL TREJO RN SPOKE WITH JACY
--- NOTE | 2020-09-14 13:59 | NUR ---
MS RN NOTE NOTED REDNESS AND SWELLING ON THE R ARM. PHOTO TAKEN. WILL CONTINUE TO MONITOR FOR ANY CHANGES.
[2020-09-14] MEDS: MEROPENEM 500 MG in IV NS 0.9% 50 ML IV SCH (14:05)
--- NOTE | 2020-09-14 15:11 | NUR ---
MS RN NOTE STARTED BLOOD TRANSFUSION. BP 110/45 MI 106 RR 18 T 98.0 TAUGHT PATIENT TO REPORT ANY ADVERSE REACTIONS. WILL CONTINUE TO MONITOR.T
--- NOTE | 2020-09-14 15:25 | NUR ---
MS RN NOTE PATIENT SHOWS NO SIGNS OF HEMOLYTIC REACTIONS. VS 155/110 NC 108 RR 16 T 97.5. WILL CONTINUE TO MONITOR.
--- NOTE | 2020-09-14 16:17 | NUR ---
MS RN NOTE DR DELGADILLO ORDERED PANTOPRAZOLE IV 40 MG BID. H/H Q4H. HOLD ANTICOAGULANT MEDS. HEMATOLOGY CONSULT. ORDERS REPEATED AND VERIFIED.
[2020-09-14] MEDS: PANTOPRAZOLE 40 MG VIAL IV SCH (16:33)
--- NOTE | 2020-09-14 16:49 | NUR ---
MS RN NOTE STOOL SPEC COLLECTED. CALLED LAB FOR INTERNAL WHOLESALER.
--- NOTE | 2020-09-14 17:15 | NUR ---
MS RN NOTE 1 UNIT OF PRBC TRANSFUSED. VS BP 118/82 SC 115 RR 15 T 97.6 NO HEMOLYTIC REACTION NOTED.
--- NOTE | 2020-09-14 17:24 | NUR ---
RECEIVED PATIENT FROM MELITON TENA. PATIENT IS A/0 X 1 WITH NO SIGNS OF DISTRESS IN ROOM AIR. CURRENTLY FINISHED 1 UNIT OF PRBC. PATIENT ON TELE MONITOR. ORIENTED PATIENT TO HER ROOM, SIDE RAILS X 2 ARE UP FOR SAFETY, CALL LIGHT WITHIN REACH WILL CONTINUE TO MONITOR.
--- NOTE | 2020-09-14 17:30 | NUR ---
MS RN NOTE PATIENT TRANSFERRED TO [facility]. VS 111/89 AL 118 SA02 98% BEDSIDE REPORT GIVEN TO SHELLI COELHO. 2ND BAG OF PRBC ENDORSED.
--- NOTE | 2020-09-14 17:51 | NUR ---
MS RN NOTE ORDERED MIDLINE INSERTION. NSG SANDING MACHINE OPERATOR OR TENDER AND ANGELINE SATELLITE TV TECHNICIAN INSTALLER ARE MADE AWARE.
[2020-09-14] MEDS: LEVOFLOXACIN 250 MG /D5W 50 ML 250 MG in PREMIX 1 EA IV SCH (17:53)
--- NOTE | 2020-09-14 19:02 | NUR ---
RN CLOSED NOTES PATIENT IS A/O X 1 ROOM AIR WITH NO SIGNS OF DISTRESS. IV R UA #22G. TELE MONITOR SR. MIDLINE PENDING AND 1 UNIT PRBC STILL PENDING. WILL ENDORSE TO THE SAP PROJECT MANAGER NURSE.
[2020-09-14 19:08] LABS: ALBUMIN 1.9 g/dL (3.4-5.0); BILIRUBIN,DIRECT 0.3 mg/dL (0.0-0.2); BILIRUBIN,TOTAL 1.3 mg/dL (0.2-1.0); TOTAL PROTEIN, SERUM 5.4 g/dL (6.4-8.2)
--- NOTE | 2020-09-14 19:15 | NUR ---
RN NOTE RECEIVED PT ALERT AND ORIENTED X 1 IN BED. PT ON ROOM AIR. GASOLINE SERVICE ATTENDANT AT BEDSIDE CURRENTLY DRAWING BLOOD ORDERED. PENDING MIDLINE INSERTION. PENDING 1 UNIT OF PRBCS.
[2020-09-14] MEDS ORDERED: methylPREDNISolone SOD SUCC 125 MG/2ML VIAL IV STA (19:51)
--- NOTE | 2020-09-14 19:51 | NUR ---
RN NOTE MIDLINE NURSE AT BEDSIDE.
[2020-09-14 20:45] LABS: BASOPHILS # (AUTO) 0.1 /CMM (0.0-0.2); BASOPHILS % (AUTO) 1.1 % (0.0-2.0); EOSINOPHILS % (AUTO) 1.1 % (0.0-6.0); HEMATOCRIT 21 % (33-45); LYMPHOCYTES # (AUTO) 0.9 /CMM (0.8-4.8); MEAN CORPUSCULAR HGB CONC 33 g/dl (31.0-36.0); MEAN CORPUSCULAR VOLUME 89 fL (82-100); MONOCYTES # (AUTO) 0.4 /CMM (0.1-1.30); MONOCYTES % (AUTO) 6.2 % (2.0-12.0); NEUTROPHILS # (AUTO) 5.2 /CMM (1.8-8.9); NEUTROPHILS % (AUTO) 78.6 % (43.0-81.0); PLATELET COUNT (AUTO) 209 /CMM (150-450); RED BLOOD CELL COUNT(AUTO) 2.35 MIL/uL (4.0-5.2); WHITE BLOOD COUNT (AUTO) 6.6 K/uL (4.3-11.0)
--- NOTE | 2020-09-14 20:55 | NUR ---
RN NOTE RECEIVED ALERT FOR CRITICAL LAB VALUE HGB 6.9. WILL TRANSFUSE REMAINING UNIT OF PRBCS ORDERED.
[2020-09-14 21:16] LABS: HEMOGLOBIN 6.9 g/dL (11.5-14.8)
--- NOTE | 2020-09-14 21:47 | NUR ---
RN NOTE BLOOD TRANSFUSION STARTED.
[2020-09-14] MEDS: SENNOSIDES 8.6 MG TABLET PO SCH (21:52)
[2020-09-14 22:11] LABS: LYMPHOCYTES % (MANUAL) 11 % (16-48); MONOCYTES % (MANUAL) 4 % (0-11.0); NEUTROPHILS % (MANUAL) 85 (42-76)
[2020-09-15] VITALS (13 sets, daily range): BP systolic 116–159; BP diastolic 48–96
--- NOTE | 2020-09-15 00:47 | NUR ---
RN NOTE BLOOD TRANSFUSION COMPLETED. NO ADVERSE REACTIONS NOTED AT THIS TIME.
[2020-09-15 06:02] LABS: OCCULT BLOOD STOOL NEGATIVE (NEGATIVE)
--- NOTE | 2020-09-15 06:19 | NUR ---
RN NOTE UNABLE TO DRAW BLOOD FROM MIDLINE. COMMUNITY MARKETING MANAGER AT BEDSIDE ATTEMPTED TO DRAW BLOOD FROM PT X 2 BUT UNABLE. WILL TRY AGAIN WITH ANOTHER COMMUNITY MARKETING MANAGER.
[2020-09-15] MEDS ORDERED: PANTOPRAZOLE 40 MG TABLET.DR PO SCH (07:30)
--- NOTE | 2020-09-15 07:48 | NUR ---
PATIENT RECEIVED IN BED ON 2L NC, O2 SAT 97%. NO RESPIRATORY DISTRESS. PATIENT IS AOX1 FARSI SPEAKING. PATIENT HAS RCW HD CATH, IVAN MIDLINE AND LFA #22 INTACT, NO SIGNS OF INFECTION OR INFILTRATION. PER PREVIOUS RN/MD ORDERS, PATIENT S/P 3U PRBC, LAST H/H 6.03/20. ANTICOAGS HELD. CURRENT LABS PENDING. H/H ORDERED Q4H. WILL CONTINUE TO MONITOR
[2020-09-15] MEDS: LEVOTHYROXINE SODIUM 137 MCG TABLET PO SCH (08:22)
[2020-09-15] MEDS: CHOLECALCIFEROL 1,000 UNIT TABLET (VIT D3) PO SCH (08:22)
[2020-09-15] MEDS: DOCUSATE SODIUM 100 MG CAPSULE PO SCH (08:22)
[2020-09-15] MEDS: VIT B CMPLX 3/FA/VIT C/BIOTIN 1 TAB TABLET PO SCH (08:22)
[2020-09-15] MEDS: CITRIC ACID/SODIUM CITRATE (BICITRA)15 ML UDC PO SCH ×4 (08:22→21:49)
[2020-09-15] MEDS: PANTOPRAZOLE 40 MG VIAL IV SCH ×2 (08:22→17:53)
[2020-09-15] MEDS: PROSOURCE / PROSTAT (PYXIS) 30 ML UDC PO SCH ×2 (08:23→17:52)
[2020-09-15] MEDS: NEPRO VAN 237 ML CAN PO SCH ×2 (08:23→17:52)
[2020-09-15] MEDS: POLYVINYL ALCOHOL 15 ML BOTTLE EACHEYE SCH ×3 (09:39→17:53)
[2020-09-15 10:54] LABS: BASOPHILS % (AUTO) 0.1 % (0.0-2.0); HEMATOCRIT 27 % (33-45); HEMOGLOBIN 8.8 g/dL (11.5-14.8); LYMPHOCYTES # (AUTO) 0.4 /CMM (0.8-4.8); LYMPHOCYTES % (AUTO) 13.8 % (20.0-44.0); MEAN CORPUSCULAR HGB CONC 33 g/dl (31.0-36.0); MEAN CORPUSCULAR VOLUME 89 fL (82-100); MONOCYTES # (AUTO) 0.1 /CMM (0.1-1.30); MONOCYTES % (AUTO) 3.5 % (2.0-12.0); NEUTROPHILS # (AUTO) 2.7 /CMM (1.8-8.9); NEUTROPHILS % (AUTO) 82.6 % (43.0-81.0); PLATELET COUNT (AUTO) 155 /CMM (150-450); RED BLOOD CELL COUNT(AUTO) 3.03 MIL/uL (4.0-5.2); WHITE BLOOD COUNT (AUTO) 3.3 K/uL (4.3-11.0)
[2020-09-15 11:28] LABS: ALKALINE PHOSPHATASE 51 U/L (46-116); ASPARTATE AMINOTRANSFERASE 19 U/L (15-37); BILIRUBIN,TOTAL 1.2 mg/dL (0.2-1.0); CALCIUM, SERUM 8.1 mg/dL (8.5-10.1); CARBON DIOXIDE 30 mmol/L (21-32); CHLORIDE 103 mmol/L (98-107); CREATININE 3.3 mg/dL (0.6-1.3); GLUCOSE 116 mg/dL (74-106); SODIUM SERUM 138 mmol/L (136-145); TOTAL PROTEIN, SERUM 4.9 g/dL (6.4-8.2); UREA NITROGEN, BLOOD 30 mg/dL (7-18)
[2020-09-15 11:43] LABS: ALANINE AMINOTRANSFERASE 7 U/L (12-78)
--- NOTE | 2020-09-15 12:07 | NUR ---
AUTOMOTIVE TECHNICIAN REPORTS NO OUTPUT, ONLY WASH. 1 U PRBC GIVEN WITH DIALYSIS ORDERED BY MD RDZ
[2020-09-15] MEDS: methylPREDNISolone SOD SUCC 125 MG/2ML VIAL IV SCH ×2 (13:18→21:49)
[2020-09-15] MEDS: MEROPENEM 500 MG in IV NS 0.9% 50 ML IV SCH (15:04)
[2020-09-15] MEDS: LEVOFLOXACIN 250 MG /D5W 50 ML 250 MG in PREMIX 1 EA IV SCH (17:52)
[2020-09-15 17:53] LABS: HEMOGLOBIN 11.4 g/dL (11.5-14.8)
--- NOTE | 2020-09-15 19:18 | NUR ---
RN NOTE RECEIVED PT IN BED IN SEMI BAIG'S POSITION. ON 2L OF O2 VIA NC, NO RESPIRATORY DISTRESS NOTED, ALERT AND ORIENTED X 1 FARSI SPEAKING. USED BLUE PHONE CLIENT STRATEGIST. WITH HD CATH INTACT. LEFT UPPER ARM MIDLINE AND LFA IV INTACT WITHOUT SIGNS OF COMPLICATIONS AT SITE. PT RECEIVED 1 UNIT OF PRBC DURING HD TODAY, NO ADVERSE REACTIONS NOTED, SAFETY MEASURES IN PLACE PER PROTOCOL, BED ALARM ON, BED LOCKED AND IN LOW POSITION, SIDE RAILS UP X 3, CALL LIGHT WITHIN REACH,
--- NOTE | 2020-09-15 19:26 | NUR ---
PATIENT REMAINS IN BED, ON RA INTERMITTENT USE OF 2L RA. NO RESPIRATORY DISTRESS. VENOUS DUPLEX STUDY RESULTED, NEGATIVE FOR DVT IN BUE. ALL SAFETY MEASURES IN PLACE. ALL NEEDS ENDORSED TO ONCOMING RN FOR GASPER.
[2020-09-15] MEDS: SENNOSIDES 8.6 MG TABLET PO SCH (21:49)
[2020-09-15 22:16] LABS: HEMOGLOBIN 11.2 g/dL (11.5-14.8)
[2020-09-16 00:43] VITALS: BP 140/77
[2020-09-16 04:00] VITALS: BP 117/64
[2020-09-16 06:52] LABS: BASOPHILS % (AUTO) 0.6 % (0.0-2.0); HEMATOCRIT 32 % (33-45); HEMOGLOBIN 10.6 g/dL (11.5-14.8); LYMPHOCYTES # (AUTO) 0.6 /CMM (0.8-4.8); LYMPHOCYTES % (AUTO) 16.7 % (20.0-44.0); MEAN CORPUSCULAR HGB CONC 33 g/dl (31.0-36.0); MEAN CORPUSCULAR VOLUME 89 fL (82-100); MONOCYTES # (AUTO) 0.1 /CMM (0.1-1.30); MONOCYTES % (AUTO) 3.2 % (2.0-12.0); NEUTROPHILS # (AUTO) 2.9 /CMM (1.8-8.9); NEUTROPHILS % (AUTO) 79.5 % (43.0-81.0); PLATELET COUNT (AUTO) 127 /CMM (150-450); RED BLOOD CELL COUNT(AUTO) 3.58 MIL/uL (4.0-5.2); WHITE BLOOD COUNT (AUTO) 3.7 K/uL (4.3-11.0)
--- NOTE | 2020-09-16 06:53 | NUR ---
RN NOTE NO ACUTE CHANGES OBSERVED OVERNIGHT. PT ALERT AND ORIENTED X 2, ON 2L OF O2 VIA NC. NO SIGNS OF RESPIRATORY DISTRESS, NO SIGNS OF PAIN OR DISCOMFORT, IV LINES INTACT. ALL NEEDS MET AND ATTENDED TO, SAFETY MEASURES IN PLACE PER PROTOCOL,
[2020-09-16 07:34] LABS: CALCIUM, SERUM 7.9 mg/dL (8.5-10.1); CARBON DIOXIDE 34 mmol/L (21-32); CHLORIDE 101 mmol/L (98-107); CREATININE 3.7 mg/dL (0.6-1.3); GLUCOSE 133 mg/dL (74-106); MAGNESIUM 1.9 mg/dL (1.8-2.4); PHOSPHORUS 3.7 mg/dL (2.5-4.9); POTASSIUM 3.5 mmol/L (3.5-5.1); SODIUM SERUM 137 mmol/L (136-145); UREA NITROGEN, BLOOD 47 mg/dL (7-18)
[2020-09-16 08:00] VITALS: BP 131/54
--- NOTE | 2020-09-16 08:00 | NUR ---
PATIENT RECEIVED IN BED ON ROOM AIR O2 SAT 93% NO RESPIRATORY DISTRESS. PATIENT IS AOX1-2 FARSI SPEAKING. PATIENT ON MONITOR SHOWING SR.PATIENT HAS RIGHT SUBCLAVIAN HD CATH AND IVAN MIDLINE, LFA 22 INTACT FLUSHED WELL NO SIGNS OF INFECTION OR INFILTRATION. PATIENT S/P 4U PRBC. ALL SAFETY MEASURES IN PLACE. WILL CONTINUE TO MONITOR
[2020-09-16] MEDS: DOCUSATE SODIUM 100 MG CAPSULE PO SCH (08:03)
[2020-09-16] MEDS: PANTOPRAZOLE 40 MG VIAL IV SCH (08:04)
[2020-09-16] MEDS: methylPREDNISolone SOD SUCC 125 MG/2ML VIAL IV SCH (08:04)
[2020-09-16] MEDS: CHOLECALCIFEROL 1,000 UNIT TABLET (VIT D3) PO SCH (08:04)
[2020-09-16] MEDS: VIT B CMPLX 3/FA/VIT C/BIOTIN 1 TAB TABLET PO SCH (08:04)
[2020-09-16] MEDS: LEVOTHYROXINE SODIUM 137 MCG TABLET PO SCH (08:04)
[2020-09-16] MEDS: CITRIC ACID/SODIUM CITRATE (BICITRA)15 ML UDC PO SCH ×2 (08:04→13:00)
[2020-09-16] MEDS: PROSOURCE / PROSTAT (PYXIS) 30 ML UDC PO SCH (08:05)
[2020-09-16] MEDS: NEPRO VAN 237 ML CAN PO SCH (08:05)
[2020-09-16 08:07] LABS: *ANA ANTI-CENTROMERE B AB <0.2 AI (0.0-0.9); *ANA ANTI-DNA(DS) AB, QN <1 IU/mL (0-9); *ANA ANTI-JO-1 <0.2 AI (0.0-0.9); *ANA RNP ANTIBODIES 0.2 AI (0.0-0.9); *ANA SJOGREN'S ANTI-SS-A 1.3 AI (0.0-0.9); *ANA SJOGREN'S ANTI-SS-B <0.2 AI (0.0-0.9); *ANAANTI-SCLERODERMA-70 AB <0.2 AI (0.0-0.9); *ANASMITH AB <0.2 AI (0.0-0.9)
[2020-09-16] MEDS: POLYVINYL ALCOHOL 15 ML BOTTLE EACHEYE SCH ×2 (09:00→13:00)
--- NOTE | 2020-09-16 09:50 | NUR ---
PATIENT REFUSED EYE DROPS, WILL NOTIFY PRIMARY OF REFUSAL AND LOW PO INTAKE
--- NOTE | 2020-09-16 10:00 | NUR ---
JEFRY SAEED TRANSFER TO TELE STATUS WITH POSSIBLE DC, CANCELS Q4H H/H ORDERS.
[2020-09-16 12:00] VITALS: BP 145/63
--- NOTE | 2020-09-16 14:19 | NUR ---
PATIENT DISCHARGED TO [facility]. REPORT GIVEN TO CARLOS RN. REPORT GIVEN TO TRANSPORT AT BEDSIDE. ALL BELONGINGS AND DISCHARGE PAPERWORK GIVEN TO TRANSPORT. DUE TO PATIENT RECEIVING IV ABX, IVAN MIDLINE LEFT IN PATIENT PER FACILITY REQUEST. LEFT FOREARM 22G IV REMOVED, ID WRISTBANDS X 2 REMOVED. DISCHARGE PHOTOGRAPHS TAKEN, PLACED IN CHART. VITALS CHARTED.
[2020-09-18 09:07] LABS: *SPE A/G RATIO 0.9 (0.7-1.7); *SPE ALBUMIN 2.3 g/dL (2.9-4.4); *SPE ALPHA-1-GLOBULIN 0.4 g/dL (0.0-0.4); *SPE ALPHA-2-GLOBULIN 0.4 g/dL (0.4-1.0); *SPE BETA GLOBULIN 0.6 g/dL (0.7-1.3); *SPE GLOBULIN, TOTAL 2.7 g/dL (2.2-3.9); *SPE M-SPIKE 0.3 g/dL (Not Observed); *SPEGAMMA GLOBULIN 1.3 g/dL (0.4-1.8)
== END 2020-09-16 14:20 | DRG 193 ==
LOC: ER 14:29 → TELE1 17:08 → MEDSG1 09-08 08:18 → MED 09-09 19:39 → TELE1 09-14 17:19 → TELE-TD 09-14 17:35 → TELE1 09-16 08:13
PROVIDERS: ADMIT Family Medicine; ATTEND Nurse Practitioner Acute Care
PROC: 5A1D70Z Performance of Urinary Filtration, Intermittent, Less than 6 Hours Per Day (ICD-10-PCS; principal; 2020-09-06)
PROC: 30233N1 Transfusion of Nonautologous Red Blood Cells into Peripheral Vein, Percutaneous Approach (ICD-10-PCS; 2020-09-13)
PROC: 05H633Z Insertion of Infusion Device into Left Subclavian Vein, Percutaneous Approach (ICD-10-PCS; 2020-09-14)
PROC: B547ZZA Ultrasonography of Left Subclavian Vein, Guidance (ICD-10-PCS; 2020-09-14)
DX: J15.9 Unspecified bacterial pneumonia (principal); E43 Unspecified severe protein-calorie malnutrition; N18.6 End stage renal disease; G93.41 Metabolic encephalopathy; I50.33 Acute on chronic diastolic (congestive) heart failure; N39.0 Urinary tract infection, site not specified; I13.2 Hypertensive heart and chronic kidney disease with heart failure and with stage 5 chronic kidney disease, or end stage renal disease; M31.31 Wegener's granulomatosis with renal involvement; Z16.21 Resistance to vancomycin; Z16.12 Extended spectrum beta lactamase (ESBL) resistance; K21.9 Gastro-esophageal reflux disease without esophagitis; F32.9 Major depressive disorder, single episode, unspecified; Z99.2 Dependence on renal dialysis; B96.20 Unspecified Escherichia coli [E. coli] as the cause of diseases classified elsewhere; D25.9 Leiomyoma of uterus, unspecified; D63.8 Anemia in other chronic diseases classified elsewhere; E03.9 Hypothyroidism, unspecified; F03.90 Unspecified dementia, unspecified severity, without behavioral disturbance, psychotic disturbance, mood disturbance, and anxiety; I25.10 Atherosclerotic heart disease of native coronary artery without angina pectoris; Z88.0 Allergy status to penicillin; Z88.2 Allergy status to sulfonamides; Z20.822 Contact with and (suspected) exposure to COVID-19; N20.0 Calculus of kidney; E88.09 Other disorders of plasma-protein metabolism, not elsewhere classified; I95.9 Hypotension, unspecified; D50.9 Iron deficiency anemia, unspecified; R91.1 Solitary pulmonary nodule; Z68.20 Body mass index [BMI] 20.0-20.9, adult; B95.2 Enterococcus as the cause of diseases classified elsewhere
CPT/HCPCS: 36415; 70450-TC; 71045-TC; 71250-TC; 80048-TC; 80053-TC; 80061-TC; 80076-TC; 80202-TC; 81001; 82272-TC; 82728-TC; 82784; 83010; 83540-TC; 83605-TC; 83615-TC; 83735-TC; 83880; 84100-TC; 84155; 84165; 84439-TC; 84443-TC; 84484-TC; 85025-TC; 85027-TC; 85045-TC; 85610-TC; 85730-TC; 86140-TC; 86225; 86235; 86334; 86431-TC; 86706; 86850-TC; 86880-TC; 87040-TC; 87086-TC; 87186-TC; 87340; 90935-TC; 93307-TC; A4216; C9113; G0378; J1956; J2020; J2185; J2405; J2930; J2997; J3370; J7030; J7040; J7050; J7060; J7500; P9016-BL; U0003

== ENCOUNTER 2021-09-15 12:37 | Inpatient (IN) | payer MEDICARE, OTHER ==
[~2021-09-15] VITALS: Ht 160 cm; Wt 37.0 kg
[~2021-09-15 12:37] MED LIST changes: +ALBU2.5V38 NEB; -BROM1.7D9 EACHEYE; -CALC500T63 PO; +LEVO250T59 PO; +MERO500P IV; +MIRT-90 PO; -MIRT15TA7 PO
--- NOTE | 2021-09-15 13:00 | NUR ---
To ER bed 8, PILI [id number] "more Altered than usual", AAOX1, breathing even and non labored, connected to monitor
--- NOTE | 2021-09-15 13:30 | NUR ---
DRESS CAP MAKER AT BEDSIDE FOR BLOOD DRAW
--- NOTE | 2021-09-15 13:33 | NUR ---
CALLED NURSING SUP FOR MIDLINE
[2021-09-15 13:53] LABS: BASOPHILS # (AUTO) 0.1 K/uL (0.0-0.2); BASOPHILS % (AUTO) 1.5 % (0.0-2.0); EOSINOPHILS % (AUTO) 1.7 % (0.0-6.0); HEMATOCRIT 30 % (33-45); HEMOGLOBIN 10.3 g/dL (11.5-14.8); LYMPHOCYTES # (AUTO) 0.5 K/uL (0.8-4.8); LYMPHOCYTES % (AUTO) 13.4 % (20.0-44.0); MEAN CORPUSCULAR HGB CONC 34 g/dl (31.0-36.0); MEAN CORPUSCULAR VOLUME 91 fL (82-100); MONOCYTES # (AUTO) 0.4 K/uL (0.1-1.30); MONOCYTES % (AUTO) 11.5 % (2.0-12.0); NEUTROPHILS # (AUTO) 2.6 K/uL (1.8-8.9); NEUTROPHILS % (AUTO) 71.9 % (43.0-81.0); PLATELET COUNT (AUTO) 217 K/uL (150-450); RED BLOOD CELL COUNT(AUTO) 3.33 MIL/uL (4.0-5.2); WHITE BLOOD COUNT (AUTO) 3.6 K/uL (4.3-11.0)
--- NOTE | 2021-09-15 13:59 | NUR ---
TAKEN TO CT VIA TOYIN
--- NOTE | 2021-09-15 14:20 | NUR ---
COVID SWAB DONE AND SENT TO LAB
[2021-09-15 14:31] LABS: CALCIUM, SERUM 8.9 mg/dL (8.5-10.1); CARBON DIOXIDE 32 mmol/L (21-32); CHLORIDE 97 mmol/L (98-107); CREATININE 5.4 mg/dL (0.6-1.3); GLUCOSE 93 mg/dL (74-106); POTASSIUM 3.6 mmol/L (3.5-5.1); SODIUM SERUM 136 mmol/L (136-145); UREA NITROGEN, BLOOD 31 mg/dL (7-18)
[2021-09-15 14:37] LABS: ALANINE AMINOTRANSFERASE 14 U/L (12-78); ALKALINE PHOSPHATASE 59 U/L (46-116); ASPARTATE AMINOTRANSFERASE 19 U/L (15-37); BILIRUBIN,DIRECT 0.2 mg/dL (0.0-0.2); BILIRUBIN,TOTAL 0.7 mg/dL (0.2-1.0); TOTAL PROTEIN, SERUM 6.6 g/dL (6.4-8.2)
--- NOTE | 2021-09-15 17:24 | NUR ---
NEPHOROLOGY SPEAKING WITH DR. DAVID.
--- NOTE | 2021-09-15 17:25 | NUR ---
RASHEED NURSE KRISTINA AT BEDSIDE FOR MIDLINE INSERTION
--- NOTE | 2021-09-15 18:23 | NUR ---
CALLED NURSE SUP FOR TELE BED
[2021-09-15] MEDS ORDERED: Z GUARD REMEDY 4 OZ OINT TP PRN (18:30)
[2021-09-15] MEDS ORDERED: CEFTRIAXONE 1 G in IV D5W 50 ML IV ONE (18:30)
[2021-09-15] MEDS ORDERED: hydrALAZINE HCL 25 MG TABLET PO PRN (18:30)
[2021-09-15] MEDS ORDERED: VANCOMYCIN 1 GM in IV D5W 250 ML IV ONE (18:30)
[2021-09-15] MEDS ORDERED: ONDANSETRON HCL/PF 4 MG/2 ML VIAL IVP PRN (18:30)
[2021-09-15] MEDS ORDERED: BISACODYL SUPP (10 MG) 10 MG/SUPP.RECT SUPP.RECT RC PRN (18:30)
[2021-09-15] MEDS ORDERED: ZOLPIDEM TARTRATE 5 MG TABLET PO PRN (18:30)
[2021-09-15] MEDS ORDERED: IV NS 0.9% 1,000 ML BAG IV ONE (18:30)
[2021-09-15] MEDS ORDERED: ALBUTEROL FS 2.5 MG/3 ML VIAL.NEB NEB PRN (18:30)
[2021-09-15] MEDS ORDERED: MAG HYDROX/AL HYDROX/SIMETH 30 ML UDC PO PRN (18:30)
[2021-09-15] MEDS ORDERED: ACETAMINOPHEN 325 MG TABLET PO PRN ×2 (18:30)
[2021-09-15] MEDS ORDERED: ALPRAZOLAM 1 MG TABLET PO SCH (18:30)
[2021-09-15] MEDS ORDERED: MAGNESIUM HYDROXIDE 30 ML UDC PO PRN (18:30)
--- NOTE | 2021-09-15 20:00 | NUR ---
PATIENT RESTING IN BED, VSS, CONNECTED TO CARDIAC AND POX MONITOR. NO ACUTE DISTRESS NOTED. PATIENT ON RA. WILL CONTINUE TO MONITOR.
[2021-09-15] MEDS: CITRIC ACID/SODIUM CITRATE (BICITRA)15 ML UDC PO SCH (21:11)
[2021-09-15] MEDS: MIRTAZAPINE 15 MG TABLET PO SCH (22:45)
[2021-09-15] MEDS: SENNOSIDES 8.6 MG TABLET PO SCH (22:45)
[2021-09-15] MEDS ORDERED: MIRTAZAPINE 15 MG TABLET ONE (22:45)
[2021-09-16] VITALS (7 sets, daily range): BP systolic 121–183; BP diastolic 66–80
--- NOTE | 2021-09-16 03:20 | NUR ---
PATIENT TRANSFERRED UNDER ACLS
--- NOTE | 2021-09-16 03:30 | NUR ---
RN NOTES RECEIVED PATIENT FROM ER WITH DX. OF ACUTE ENCEPHALOPATHY, AWAKE, NON-VERBAL. UNCOOPERATIVE, NOT IN DISTRESS, SKIN ASSESSMENT DONE, NOT IN DISTRESS, BED IN LOCKED POSITION, SIDERAILSUPX2, WILL CONTINUE TO MONITOR
--- NOTE | 2021-09-16 04:10 | NUR ---
RN NOTES SPOKE TO DR. HAWLEY AND GOT AN ORDER OF BILATERAL SOFT WRIST RESTRAINTS, ORDER NOTED AND CARRIED OUT
--- NOTE | 2021-09-16 06:31 | NUR ---
RN NOTES AWAKE, NOT IN DISTRESS, NO PAIN, NOTED, MORNING CARE RENDERED, SIDERAILSUPX2. SAFETY MEASURES APPLIED, PT. NEEDS ATTENDED
[2021-09-16 07:08] LABS: BASOPHILS # (AUTO) 0.1 K/uL (0.0-0.2); BASOPHILS % (AUTO) 1.3 % (0.0-2.0); EOSINOPHILS % (AUTO) 3.1 % (0.0-6.0); HEMATOCRIT 31 % (33-45); HEMOGLOBIN 10.8 g/dL (11.5-14.8); LYMPHOCYTES # (AUTO) 0.4 K/uL (0.8-4.8); LYMPHOCYTES % (AUTO) 9.1 % (20.0-44.0); MEAN CORPUSCULAR HGB CONC 35 g/dl (31.0-36.0); MEAN CORPUSCULAR VOLUME 91 fL (82-100); MONOCYTES # (AUTO) 0.4 K/uL (0.1-1.30); MONOCYTES % (AUTO) 9.8 % (2.0-12.0); NEUTROPHILS # (AUTO) 3.4 K/uL (1.8-8.9); NEUTROPHILS % (AUTO) 76.7 % (43.0-81.0); PLATELET COUNT (AUTO) 214 K/uL (150-450); RED BLOOD CELL COUNT(AUTO) 3.43 MIL/uL (4.0-5.2); WHITE BLOOD COUNT (AUTO) 4.4 K/uL (4.3-11.0)
--- NOTE | 2021-09-16 07:30 | NUR ---
MS RN OPENING NOTES RECEIVED PATIENT IN BED, AWAKE, CONFUSED, ON O2 VIA NC AT 2LPM. SATURATING WELL, NO S/SX OF ACUTE DISTRESS NOTED. IV ACCESS ON GIANFRANCO MIDLINE, LEFT NANO G#20, BOTH PATENT AND FLUSHES WELL. NOTED WITH PERMACATH ON RCW WITH DRY AND INTACT DRESSING. SAFETY PRECAUTIONS IN PLACE: BED ON LOWEST LOCKED POSITION, SIDE RAILS UP X 2. CALL LIGHT WITHIN EASY REACH. WILL CONTINUE TO MONITOR ACCORDINGLY.
[2021-09-16 07:35] LABS: CALCIUM, SERUM 8.9 mg/dL (8.5-10.1); CARBON DIOXIDE 29 mmol/L (21-32); CHLORIDE 96 mmol/L (98-107); CREATININE 6.2 mg/dL (0.6-1.3); GLUCOSE 73 mg/dL (74-106); PHOSPHORUS 4.3 mg/dL (2.5-4.9); POTASSIUM 4.1 mmol/L (3.5-5.1); SODIUM SERUM 135 mmol/L (136-145); UREA NITROGEN, BLOOD 36 mg/dL (7-18)
[2021-09-16] MEDS: CHOLECALCIFEROL 1,000 UNIT TABLET (VIT D3) PO SCH (08:19)
[2021-09-16] MEDS: PANTOPRAZOLE 40 MG TABLET.DR PO SCH (08:19)
[2021-09-16] MEDS: DOCUSATE SODIUM 100 MG CAPSULE PO SCH (08:19)
[2021-09-16] MEDS: AZATHIOPRINE 50 MG TABLET PO SCH (08:20)
[2021-09-16] MEDS: AMLODIPINE BESYLATE 2.5 MG TABLET PO SCH (08:20)
[2021-09-16] MEDS: CITRIC ACID/SODIUM CITRATE (BICITRA)15 ML UDC PO SCH ×4 (08:20→21:00)
[2021-09-16] MEDS: LEVOTHYROXINE SODIUM 137 MCG TABLET PO SCH (08:20)
[2021-09-16] MEDS: POLYVINYL ALCOHOL 15 ML BOTTLE OP SCH ×3 (08:23→17:37)
[2021-09-16] MEDS: PROSOURCE / PROSTAT (PYXIS) 30 ML UDC PO SCH ×2 (08:52→17:00)
[2021-09-16] MEDS: VITAMIN B COMP W-C 1 TAB TABLET PO SCH (08:53)
[2021-09-16] MEDS ORDERED: [UNRECOGNIZED DRUG - OTHER] PO SCH (09:00)
[2021-09-16] MEDS ORDERED: RENAL NOVASOURCE (8OZ) 1 EA BOX PO SCH (09:00)
[2021-09-16] MEDS ORDERED: LEVOFLOXACIN (250MG) 250 MG TABLET PO SCH (09:00)
[2021-09-16] MEDS ORDERED: FISH OIL PO SCH (09:00)
[2021-09-16] MEDS ORDERED: DHA PO SCH (09:00)
[2021-09-16] MEDS ORDERED: OMEGA PO SCH (09:00)
[2021-09-16] MEDS ORDERED: EPA PO SCH (09:00)
[2021-09-16] MEDS ORDERED: MIRT-73 PO (09:08)
[2021-09-16] MEDS ORDERED: CYAN-51 PO (09:08)
[2021-09-16] MEDS ORDERED: ONDA4TAB5 PO (09:08)
[2021-09-16] MEDS ORDERED: DICL100G26 TP (09:08)
[2021-09-16] MEDS ORDERED: SEVE800T8 PO (09:08)
--- NOTE | 2021-09-16 16:30 | NUR ---
RN NOTES PATIENT IS NOT EATING. TRIED GIVING APPLESAUCE AND NEPRO BUT PATIENT CLENCHES HER TEETH AND CLOSING HER MOUTH. SPEECH AND SWALLOW EVALUATION TRIGGERED. DR. SOLITARIO INFORMED.
[2021-09-16] MEDS: NEPRO VAN 237 ML CAN PO SCH (17:00)
--- NOTE | 2021-09-16 17:33 | NUR ---
RN NOTES PATIENT HAS NO FAMILY, PATIENT IS NOT ALERT AND ORIENTED TO SIGN A CONSENT FOR DIALYSIS. DR SOLITARIO INFORMED. DR SOLITARIO TO NOTE MEDICAL NECESSITY TO PROCEED WITH DIALYSIS.
--- NOTE | 2021-09-16 17:34 | NUR ---
RN NOTES DIALYSIS NURSE INFORMED REGARDING DR. SOLITARIO NOTES TO PROCEED WITH HD.
--- NOTE | 2021-09-16 18:38 | NUR ---
MS RN CLOSING NOTES PATIENT IN BED, AWAKE, CONFUSED, ON O2 VIA NC AT 2LPM. SATURATING WELL, NO S/SX OF ACUTE DISTRESS NOTED. IV ACCESS ON GIANFRANCO MIDLINE, LEFT NANO G#20, BOTH PATENT AND FLUSHES WELL. NOTED WITH PERMA CATH ON RCW WITH DRY AND INTACT DRESSING. ONGOING HD AT THIS TIME. SAFETY PRECAUTIONS IN PLACE: BED ON LOWEST LOCKED POSITION, SIDE RAILS UP X 2. CALL LIGHT WITHIN EASY REACH. ALL NEEDS ATTENDED AND MET. DUE MEDS GIVEN ORDERED. WILL ENDORSE TO ONCOMING SHIFT FOR GASPER.
--- NOTE | 2021-09-16 19:49 | NUR ---
MS RN OPENING NOTES PATIENT IN BED, AWAKE, CONFUSED, ON O2 VIA SIMPLE MASK AT 6LPM. SATURATING WELL, PER DIALYSIS NURSE HAD TO STOP DIALYSIS PT WAS NOT TOLERATING WELL AND O2 WAS LOW O2 NOTED IN THE 80S SO PT WAS PLACED ON A SIMPLE MASK 6L TOLERATING WELL. PT ON 90-95% . IV ACCESS ON GIANFRANCO MIDLINE, LEFT NANO G#20, BOTH PATENT AND FLUSHES WELL. NOTED WITH PERMA CATH ON RCW WITH DRY AND INTACT DRESSING PRECAUTIONS IN PLACE.BED ON LOWEST LOCKED POSITION, SIDE RAILS UP X 2. CALL LIGHT WITHIN EASY REACH. ALL NEEDS ATTENDED AND MET. WILL CONTINUE TO MONITOR.
[2021-09-16] MEDS: MUPIROCIN OINT 2% 22 GM TUBE NS SCH (22:00)
[2021-09-16] MEDS: MIRTAZAPINE 15 MG TABLET PO SCH (22:00)
[2021-09-16] MEDS: SENNOSIDES 8.6 MG TABLET PO SCH (22:00)
--- NOTE | 2021-09-17 01:00 | NUR ---
WALE COELHO NOTES ALL P.O MEDS HELD PT CLENCHES HER TEETH AND DOES NOT LET US GIVE HER MEDS. PT ALSO DOES NTO FOLLOW COMMANDS. PT TO HAVE [facility] TODAY WILL CONTINUE TO MONITOR.
--- NOTE | 2021-09-17 06:39 | NUR ---
MS RN CLOSING NOTES PATIENT IN BED, AWAKE, CONFUSED, ON O2 VIA NASAL CANNULA 3LPM. SATURATING WELL. IV ACCESS ON GIANFRANCO MIDLINE, LEFT NANO G#20, BOTH PATENT AND FLUSHES WELL. NOTED WITH PERMA CATH ON RCW WITH DRY AND INTACT DRESSING PRECAUTIONS IN PLACE.BED ON LOWEST LOCKED POSITION, SIDE RAILS UP X 2. CALL LIGHT WITHIN EASY REACH. RESTRAINTS ON BILATERALLY CIRCULATION CHECK Q2 HRS. ALL NEEDS ATTENDED AND MET. WILL ENDORSE CARE TO DAY SHIFT NURSE.
[2021-09-17 06:41] LABS: BASOPHILS % (AUTO) 0.9 % (0.0-2.0); EOSINOPHILS % (AUTO) 0.6 % (0.0-6.0); HEMATOCRIT 32 % (33-45); HEMOGLOBIN 10.7 g/dL (11.5-14.8); LYMPHOCYTES # (AUTO) 0.4 K/uL (0.8-4.8); LYMPHOCYTES % (AUTO) 8.9 % (20.0-44.0); MEAN CORPUSCULAR HGB CONC 33 g/dl (31.0-36.0); MEAN CORPUSCULAR VOLUME 92 fL (82-100); MONOCYTES # (AUTO) 0.3 K/uL (0.1-1.30); MONOCYTES % (AUTO) 6.2 % (2.0-12.0); NEUTROPHILS # (AUTO) 4.1 K/uL (1.8-8.9); NEUTROPHILS % (AUTO) 83.4 % (43.0-81.0); PLATELET COUNT (AUTO) 235 K/uL (150-450); RED BLOOD CELL COUNT(AUTO) 3.48 MIL/uL (4.0-5.2); WHITE BLOOD COUNT (AUTO) 4.9 K/uL (4.3-11.0)
[2021-09-17 07:01] LABS: CALCIUM, SERUM 8.6 mg/dL (8.5-10.1); CARBON DIOXIDE 22 mmol/L (21-32); CHLORIDE 98 mmol/L (98-107); CREATININE 6.4 mg/dL (0.6-1.3); GLUCOSE 65 mg/dL (74-106); POTASSIUM 4.4 mmol/L (3.5-5.1); SODIUM SERUM 138 mmol/L (136-145); UREA NITROGEN, BLOOD 34 mg/dL (7-18)
[2021-09-17] MEDS: LEVOTHYROXINE SODIUM 137 MCG TABLET PO SCH (07:30)
[2021-09-17] MEDS: PANTOPRAZOLE 40 MG TABLET.DR PO SCH (07:30)
--- NOTE | 2021-09-17 07:43 | NUR ---
MS RN OPENING NOTES RECEIVED PATIENT IN BED, AWAKE, CONFUSED, ON O2 VIA NASAL CANNULA 3LPM. SATURATING WELL. IV ACCESS ON GIANFRANCO MIDLINE, LEFT NANO G#20, BOTH PATENT AND FLUSHING WELL. PERMA CATH ON RCW WITH DRY AND INTACT DRESSING PRECAUTIONS IN PLACE. BED ON LOWEST LOCKED POSITION, SIDE RAILS UP X 2. CALL LIGHT WITHIN EASY REACH. BILATERAL SOFT WRIST RESTRAINS PRESENT; CIRCULATION CHECK Q2 HRS. SAFETY PRECAUTIONS IN PLACE; BED IN LOW POSITION AND LOCKED, RAILS UP X2, CALL LIGHT WITHIN REACH. WILL CONTINUE TO MONITOR PATIENT.
--- NOTE | 2021-09-17 07:58 | NUR ---
MS RN NOTES CRUSHED 0730 MEDS WITH APPLE SAUCE. PATIENT NOT A/O TO SWALLOW HER MEDICATION. PATIENT WITH EYES AND MOUTH OPEN BUT DOES NOT CHEW OR SWALLOW. WILL CONTINUE WITH SWALLOW EVAL.
[2021-09-17] MEDS: NEPRO VAN 237 ML CAN PO SCH ×2 (08:00→16:05)
[2021-09-17] MEDS: PROSOURCE / PROSTAT (PYXIS) 30 ML UDC PO SCH ×2 (08:02→16:05)
[2021-09-17] MEDS: AMLODIPINE BESYLATE 2.5 MG TABLET PO SCH (08:02)
[2021-09-17] MEDS: CITRIC ACID/SODIUM CITRATE (BICITRA)15 ML UDC PO SCH ×4 (08:02→21:00)
[2021-09-17] MEDS: AZATHIOPRINE 50 MG TABLET PO SCH (08:02)
[2021-09-17] MEDS: DOCUSATE SODIUM 100 MG CAPSULE PO SCH (08:02)
[2021-09-17] MEDS: VITAMIN B COMP W-C 1 TAB TABLET PO SCH (08:03)
[2021-09-17] MEDS: CHOLECALCIFEROL 1,000 UNIT TABLET (VIT D3) PO SCH (08:03)
[2021-09-17] MEDS: MUPIROCIN OINT 2% 22 GM TUBE NS SCH ×2 (08:05→21:18)
[2021-09-17] MEDS: POLYVINYL ALCOHOL 15 ML BOTTLE OP SCH ×3 (08:05→16:08)
[2021-09-17 08:10] VITALS: BP 108/52
[2021-09-17 16:02] VITALS: BP 145/66
--- NOTE | 2021-09-17 17:07 | NUR ---
MS RN NOTES TRIED TO DO A NURSING SWALLOW EVAL. PATIENT NOT ABLE TO SPEAK CLEAR WORDS. PER SWALLOW SCREEN HAD TO STOP. DID NOT PASS.
[2021-09-17] MEDS ORDERED: CLONIDINE HCL 0.3 MG/24H PTWK 1 EA PATCH TD SCH (18:30)
--- NOTE | 2021-09-17 18:47 | NUR ---
MS RN CLOSING NOTES PATIENT REMAINS IN BED, AWAKE, CONFUSED, ON O2 VIA NASAL CANNULA 2 LPM. SATURATING WELL. IV ACCESS ON GIANFRANCO MIDLINE, LEFT NANO G#20, BOTH PATENT AND FLUSHING WELL. PERMA CATH ON RCW WITH DRY AND INTACT DRESSING PRECAUTIONS IN PLACE. BED ON LOWEST LOCKED POSITION, SIDE RAILS UP X 2. CALL LIGHT WITHIN EASY REACH. BILATERAL SOFT WRIST RESTRAINS PRESENT; CIRCULATION CHECK Q2 HRS. ALL NEEDS ATTENDED DURING THE DAY. SAFETY PRECAUTIONS IN PLACE; BED IN LOW POSITION AND LOCKED, RAILS UP X2, CALL LIGHT WITHIN REACH. WILL ENDORSE TO DIETETICS PROFESSOR NURSE FOR GASPER.
--- NOTE | 2021-09-17 19:06 | NUR ---
MS RN OPENING NOTES PATIENT REMAINS IN BED, AWAKE, CONFUSED, ON O2 VIA NASAL CANNULA 2 LPM. SATURATING WELL. IV ACCESS ON GIANFRANCO MIDLINE, LEFT NANO G#20, BOTH PATENT AND FLUSHING WELL. PERMA CATH ON RCW WITH DRY AND INTACT DRESSING PRECAUTIONS IN PLACE. BED ON LOWEST LOCKED POSITION, SIDE RAILS UP X 2. CALL LIGHT WITHIN EASY REACH. BILATERAL SOFT WRIST RESTRAINS PRESENT; CIRCULATION CHECK Q2 HRS. ALL NEEDS ATTENDED AT THIS TIME.SAFETY PRECAUTIONS IN PLACE; BED IN LOW POSITION AND LOCKED, RAILS UP X2, CALL LIGHT WITHIN REACH. WILL CONTINUE TO MONITOR.
[2021-09-17 20:00] VITALS: BP 149/71
[2021-09-17] MEDS: SENNOSIDES 8.6 MG TABLET PO SCH (21:19)
[2021-09-17] MEDS: MIRTAZAPINE 15 MG TABLET PO SCH (21:19)
--- NOTE | 2021-09-18 06:33 | NUR ---
MS RN CLOSING NOTES PATIENT REMAINS IN BED, AWAKE, CONFUSED, ON O2 VIA NASAL CANNULA 2 LPM. SATURATING WELL. IV ACCESS ON GIANFRANCO MIDLINE, LEFT NANO G#20, BOTH PATENT AND FLUSHING WELL. PERMA CATH ON RCW WITH DRY AND INTACT DRESSING PRECAUTIONS IN PLACE. BED ON LOWEST LOCKED POSITION, SIDE RAILS UP X 2. CALL LIGHT WITHIN EASY REACH. BILATERAL SOFT WRIST RESTRAINS PRESENT; CIRCULATION CHECK Q2 HRS. ALL NEEDS ATTENDED AT THIS TIME.SAFETY PRECAUTIONS IN PLACE; BED IN LOW POSITION AND LOCKED, RAILS UP X2, CALL LIGHT WITHIN REACH. WILL ENDORSE CARE.
--- NOTE | 2021-09-18 07:20 | NUR ---
MS COELHO OPENING NOTES RECEIVED PATIENT IN BED, AWAKE, CONFUSED, ON O2 VIA NASAL CANNULA 2 LPM. SATURATING WELL. IV ACCESS ON GIANFRANCO MIDLINE, LEFT NANO G#20, BOTH PATENT AND FLUSHING WELL. PERMA CATH ON RCW WITH DRY AND INTACT DRESSING PRECAUTIONS IN PLACE. BED ON LOWEST LOCKED POSITION, SIDE RAILS UP X 2. CALL LIGHT WITHIN EASY REACH. BILATERAL SOFT WRIST RESTRAINS PRESENT; CIRCULATION CHECK Q2 HRS. ALL NEEDS ATTENDED AT THIS TIME.SAFETY PRECAUTIONS IN PLACE; BED IN LOW POSITION AND LOCKED, RAILS UP X2, CALL LIGHT WITHIN REACH. WILL ENDORSE CARE. Addendum: 09/18/21 at 1336 by ANNA CLAYTON RN DOCUMENTATION ERROR--WILL CONTINUE PLAN OF CARE
--- NOTE | 2021-09-18 07:25 | NUR ---
RN OPENING NOTES REASSESSMENT PATIENT IN BED AWAKE WITH EYES OPEN. UNABLE TO ASSESS ORIENTATION STATUS. PATIENT RESPONDS TO VERBAL AND PHYSICAL STIMULI. PATIENT IS PENDING SWALLOW EVAL. PER NURSING JUDGMENT, PATIENT UNABLE TO EAT OR TAKE MEDICATIONS PO AT THIS TIME. SAFETY MEASURES IN PLACE. BED ON LOWEST LOCKED POSITION, SIDE RAILS UP X 2. CALL LIGHT WITHIN EASY REACH. WILL CONTINUE TO MONITOR
[2021-09-18] MEDS: PANTOPRAZOLE 40 MG TABLET.DR PO SCH (07:30)
[2021-09-18] MEDS: LEVOTHYROXINE SODIUM 137 MCG TABLET PO SCH (07:30)
[2021-09-18 07:44] LABS: BASOPHILS # (AUTO) 0.1 K/uL (0.0-0.2); BASOPHILS % (AUTO) 1.2 % (0.0-2.0); EOSINOPHILS % (AUTO) 0.7 % (0.0-6.0); HEMATOCRIT 28 % (33-45); HEMOGLOBIN 9.6 g/dL (11.5-14.8); LYMPHOCYTES # (AUTO) 0.5 K/uL (0.8-4.8); LYMPHOCYTES % (AUTO) 8.4 % (20.0-44.0); MEAN CORPUSCULAR HGB CONC 34 g/dl (31.0-36.0); MEAN CORPUSCULAR VOLUME 92 fL (82-100); MONOCYTES # (AUTO) 0.5 K/uL (0.1-1.30); MONOCYTES % (AUTO) 9.6 % (2.0-12.0); NEUTROPHILS # (AUTO) 4.5 K/uL (1.8-8.9); NEUTROPHILS % (AUTO) 80.1 % (43.0-81.0); PLATELET COUNT (AUTO) 217 K/uL (150-450); RED BLOOD CELL COUNT(AUTO) 3.05 MIL/uL (4.0-5.2); WHITE BLOOD COUNT (AUTO) 5.7 K/uL (4.3-11.0)
[2021-09-18] MEDS: NEPRO VAN 237 ML CAN PO SCH ×2 (08:00→17:00)
[2021-09-18 08:07] LABS: CALCIUM, SERUM 8.4 mg/dL (8.5-10.1); CARBON DIOXIDE 21 mmol/L (21-32); CHLORIDE 98 mmol/L (98-107); GLUCOSE 52 mg/dL (74-106); POTASSIUM 4.9 mmol/L (3.5-5.1); SODIUM SERUM 139 mmol/L (136-145); UREA NITROGEN, BLOOD 48 mg/dL (7-18)
--- NOTE | 2021-09-18 08:30 | NUR ---
RN NOTES PATIENT IS AWAKE WITH EYES OPEN, NONVERBAL. RESPONDS TO VERBAL AND PHYSICAL STIMULI WITH EYES. PENDING SWALLOW EVAL AND SPEECH THERAPY CONSULT AT THIS TIME. UPON NURSING JUDGMENT, PATIENT IS UNABLE TO SWALLOW MEDICATIONS PO AND UNABLE TO EAT PO. WILL CONTINUE TO MONITOR
[2021-09-18] MEDS: AZATHIOPRINE 50 MG TABLET PO SCH (09:00)
[2021-09-18] MEDS: DOCUSATE SODIUM 100 MG CAPSULE PO SCH (09:00)
[2021-09-18] MEDS: CHOLECALCIFEROL 1,000 UNIT TABLET (VIT D3) PO SCH (09:00)
[2021-09-18] MEDS: PROSOURCE / PROSTAT (PYXIS) 30 ML UDC PO SCH ×2 (09:00→17:00)
[2021-09-18] MEDS: CITRIC ACID/SODIUM CITRATE (BICITRA)15 ML UDC PO SCH ×4 (09:00→21:00)
[2021-09-18] MEDS: VITAMIN B COMP W-C 1 TAB TABLET PO SCH (09:00)
[2021-09-18] MEDS: AMLODIPINE BESYLATE 2.5 MG TABLET PO SCH (09:00)
[2021-09-18] MEDS: POLYVINYL ALCOHOL 15 ML BOTTLE OP SCH ×3 (11:22→17:22)
[2021-09-18] MEDS: MUPIROCIN OINT 2% 22 GM TUBE NS SCH ×2 (11:22→17:21)
--- NOTE | 2021-09-18 19:59 | NUR ---
RN OPENING NOTES PATIENT IN BED AWAKE WITH EYES OPEN. UNABLE TO ASSESS ORIENTATION STATUS. PATIENT RESPONDS TO VERBAL AND PHYSICAL STIMULI. PATIENT IS PENDING SWALLOW EVAL. PT WITH BILATERAL SOFT WRIST RESTRAINTS.CIRCULATION CHECKED. SAFETY MEASURES IN PLACE. BED ON LOWEST LOCKED POSITION, SIDE RAILS UP X 2. CALL LIGHT WITHIN EASY REACH. WILL CONTINUE TO MONITOR.
[2021-09-18 20:00] VITALS: BP 157/76
[2021-09-18] MEDS: SENNOSIDES 8.6 MG TABLET PO SCH (21:17)
[2021-09-18] MEDS: MIRTAZAPINE 15 MG TABLET PO SCH (21:17)
--- NOTE | 2021-09-19 06:30 | NUR ---
RN OPENING NOTES PATIENT IN BED AWAKE WITH EYES OPEN. UNABLE TO ASSESS ORIENTATION STATUS.NOTED PT MUMBLING TO HERSEL. PATIENT RESPONDS TO VERBAL AND PHYSICAL STIMULI. PATIENT IS PENDING SWALLOW EVAL NPO AT THIS TIME.PT WITH BILATERAL SOFT WRIST RESTRAINTS.CIRCULATION CHECKED. SAFETY MEASURES IN PLACE. BED ON LOWEST LOCKED POSITION, SIDE RAILS UP X 2. CALL LIGHT WITHIN EASY REACH. ALL NEEDS MET AND ANTICIPATED. PT REPOSITIONED Q2HRS.WILL ENDORSE CARE TO DAY SHIFT NURSE.
[2021-09-19] MEDS: LEVOTHYROXINE SODIUM 137 MCG TABLET PO SCH (07:30)
[2021-09-19] MEDS: PANTOPRAZOLE 40 MG TABLET.DR PO SCH (07:30)
[2021-09-19 08:00] VITALS: BP 124/54
[2021-09-19] MEDS: NEPRO VAN 237 ML CAN PO SCH ×2 (08:00→17:00)
[2021-09-19] MEDS: DOCUSATE SODIUM 100 MG CAPSULE PO SCH (09:00)
[2021-09-19] MEDS: PROSOURCE / PROSTAT (PYXIS) 30 ML UDC PO SCH ×2 (09:00→17:00)
[2021-09-19] MEDS: CHOLECALCIFEROL 1,000 UNIT TABLET (VIT D3) PO SCH (09:00)
[2021-09-19] MEDS: AMLODIPINE BESYLATE 2.5 MG TABLET PO SCH (09:00)
[2021-09-19] MEDS: CITRIC ACID/SODIUM CITRATE (BICITRA)15 ML UDC PO SCH ×4 (09:00→21:00)
[2021-09-19] MEDS: VITAMIN B COMP W-C 1 TAB TABLET PO SCH (09:00)
[2021-09-19] MEDS: AZATHIOPRINE 50 MG TABLET PO SCH (09:00)
--- NOTE | 2021-09-19 10:53 | NUR ---
MRI ORDER WAS TEXT TO MARVIN AT 6.03AM,CALLED AN REMINDED HIM AT10.50AM .
[2021-09-19] MEDS: POLYVINYL ALCOHOL 15 ML BOTTLE OP SCH ×3 (12:17→18:17)
[2021-09-19] MEDS: MUPIROCIN OINT 2% 22 GM TUBE NS SCH ×2 (12:17→21:32)
--- NOTE | 2021-09-19 12:24 | NUR ---
Swallow evaluation completed. D/W MELITON Alexander regarding pt. Pt is alert, unable to respond, but will look when you speak to her in Farsi and will raise her eyebrows for some yes/no questions. Oral care provided Dentition: complete premorbid diet: u/a to determine at this time Pt likes to get back into position when she is pulled up. oral peripheral: unable to be completed d/2 inability to follow directions consistently. trials: necta, thin, and pureed oral phase: poor oral acceptance, holding bolus (pureed/thin) before initiating a swallow response. Pt with poor a/p transit and mild resdiue left within intra oral cavity. Pt also appears to present with pharyngeal phase with multiple swallows, and upon palpation decreased hyolaryngeal elevation is observed/felt. At this time, recommending oral care, oral hydration by providing tsp of nectar liquids 3-4 times a day no more greater than 3-5 tsps. continue with non oral med follow aspiration precautions recommendations: Consideration for temp alt. feeding method.
--- NOTE | 2021-09-19 13:23 | NUR ---
UNABLE TO SCAN PATIENT WAS COMBATIVE / UNSTABLE PER REAL ESTATE ECONOMIST MARVIN.
[2021-09-19 16:00] VITALS: BP 143/62
--- NOTE | 2021-09-19 18:00 | NUR ---
ALERT AND ORIENTED [id number] TO SELF,OPENS EYES.NO IV FLUIDS,MRI ATTEMPTED,BUT TOO RESTLESS.ROSENDO RELEASE AND TECHNICAL RECORDS CLERK TEXTED REQUESTING LOW DOSE OF ATIVAN,NO RESPONSE.DR. KUMAR HERE AND STATES HE WILL CONTACT MARICARMEN SO MRI CAN BE DONE TOMORROW.
--- NOTE | 2021-09-19 19:48 | NUR ---
MS RN OPENING NOTES RECEIVED PATIENT IN BED AWAKE WITH EYES OPEN. UNABLE TO ASSESS ORIENTATION STATUS. PATIENT RESPONDS TO VERBAL AND PHYSICAL STIMULI. IV ACCESS GIANFRANCO MIDLINE AND L WRIST 20 GAUGE, INTACT AND PATENT. PT WITH BILATERAL SOFT WRIST RESTRAINTS. CIRCULATION CHECKED. SAFETY PRECAUTIONS IN PLACE. BED IN LOWEST LOCKED POSITION, HOB ELEVATED, SIDE RAILS UP X3, AND CALL LIGHT AND TABLE WITHIN REACH. WILL CONTINUE WITH PLAN OF CARE.
[2021-09-19 20:00] VITALS: BP 155/71
[2021-09-19] MEDS: MIRTAZAPINE 15 MG TABLET PO SCH (21:32)
[2021-09-19] MEDS: SENNOSIDES 8.6 MG TABLET PO SCH (21:33)
--- NOTE | 2021-09-20 06:37 | NUR ---
MS RN CLOSING NOTES PATIENT IN BED AWAKE WITH EYES OPEN. UNABLE TO ASSESS ORIENTATION STATUS. PATIENT RESPONDS TO VERBAL AND PHYSICAL STIMULI. IV ACCESS GIANFRANCO MIDLINE AND L WRIST 20 GAUGE, INTACT AND PATENT. PT WITH BILATERAL SOFT WRIST RESTRAINTS. CIRCULATION CHECKED EVERY 2 HOURS. KEPT NPO AT ALL TIMES. ALL NEEDS MET AT THIS TIME. SAFETY PRECAUTIONS IN PLACE AT ALL TIMES. BED IN LOWEST LOCKED POSITION, HOB ELEVATED, SIDE RAILS UP X3, AND CALL LIGHT AND TABLE WITHIN REACH. WILL ENDORSE TO ONCOMING SHIFT FOR GASPER.
[2021-09-20] MEDS: LEVOTHYROXINE SODIUM 137 MCG TABLET PO SCH (07:30)
[2021-09-20] MEDS: PANTOPRAZOLE 40 MG TABLET.DR PO SCH (07:30)
--- NOTE | 2021-09-20 07:40 | NUR ---
MS MELITON OPENING NOTE Patient in bed, asleep. A/O x 1. On O2 at 4 LPM via NC, breathing evenly and unlabored. No SOB or s/s of distress noted. IV access on Left wrist #20G and GIANFRANCO midline both intact and patent. RCW permcath in place. Safety measures in place: bed in low, locked position; siderails up x 2; call light within reach. Will continue to monitor. Addendum: 09/20/21 at 0752 by LYDIA PEDERSON RN ADD: Bilateral soft restraints on both wrists noted.
[2021-09-20 08:00] VITALS: BP 151/73
[2021-09-20] MEDS: NEPRO VAN 237 ML CAN PO SCH ×2 (08:00→17:00)
[2021-09-20] MEDS: PROSOURCE / PROSTAT (PYXIS) 30 ML UDC PO SCH ×2 (09:00→17:00)
[2021-09-20] MEDS: DOCUSATE SODIUM 100 MG CAPSULE PO SCH (09:00)
[2021-09-20] MEDS: CITRIC ACID/SODIUM CITRATE (BICITRA)15 ML UDC PO SCH ×4 (09:00→21:00)
[2021-09-20] MEDS: AMLODIPINE BESYLATE 2.5 MG TABLET PO SCH (09:00)
[2021-09-20] MEDS: CHOLECALCIFEROL 1,000 UNIT TABLET (VIT D3) PO SCH (09:00)
[2021-09-20] MEDS: VITAMIN B COMP W-C 1 TAB TABLET PO SCH (09:00)
[2021-09-20] MEDS: AZATHIOPRINE 50 MG TABLET PO SCH (09:00)
[2021-09-20] MEDS: MUPIROCIN OINT 2% 22 GM TUBE NS SCH ×2 (09:31→21:44)
[2021-09-20] MEDS: POLYVINYL ALCOHOL 15 ML BOTTLE OP SCH ×3 (09:31→18:01)
[2021-09-20] MEDS ORDERED: LORAZEPAM INJ 2 MG/ML VIAL IV ONE (12:00)
[2021-09-20 16:00] VITALS: BP 157/70
--- NOTE | 2021-09-20 19:40 | NUR ---
MS RN CLOSING NOTE Patient in bed, asleep. A/O x 1. On O2 at 3 LPM via NC, breathing evenly and unlabored. No SOB or s/s of distress noted. IV access on Left wrist #20G and GIANFRANCO midline both intact and patent. RCW permcath in place. Patient kept clean and dry. Safety measures in place: bed in low, locked position; siderails up x 2; call light within reach. Will endorse to machine spreader nurse for GASPER.
[2021-09-20 20:00] VITALS: BP 160/79
--- NOTE | 2021-09-20 20:01 | NUR ---
MS RN OPENING NOTES; RECEIVED PATIENT SLEEP IN BED COMFORTABLY, BVED IN LOW POSITION, CALL LIGHTS WITHIN REACH, NO COMPLAIN OF PAIN AND DISCOMFORT AT THIS TIME, PATIENT IS A/OX1 NONE VERBAL NO FACIAL GRIMACING WAS OBSERVED, WITH GIANFRANCO ML SL, RCW HD CATH CLEAN NO BLEED ING WAS OBSERVED, PATIENT WAS O BILATERAL SOFT RESTRAINT,ON NPO, PATIENT KEPT CLEAN AND DRY ALL NEEDS MET WILL CONTINUE TO MONITOR.
[2021-09-20 20:52] VITALS: BP 160/79
[2021-09-20] MEDS: SENNOSIDES 8.6 MG TABLET PO SCH (22:00)
[2021-09-20] MEDS: MIRTAZAPINE 15 MG TABLET PO SCH (22:00)
[2021-09-20] MEDS: IV D5/ 0.9% NACL 1,000 ML IV PRN (22:46)
--- NOTE | 2021-09-20 22:59 | NUR ---
RN NOTES: MEDICATION NOT GIVEN PATIENT ON NPO FAILURE OF SWALLOW EVALUATION, ON [id number] @60ML/HR
[2021-09-21 06:42] LABS: BASOPHILS % (AUTO) 1.4 % (0.0-2.0); EOSINOPHILS % (AUTO) 5.8 % (0.0-6.0); HEMATOCRIT 29 % (33-45); LYMPHOCYTES # (AUTO) 0.3 K/uL (0.8-4.8); MEAN CORPUSCULAR HGB CONC 34 g/dl (31.0-36.0); MEAN CORPUSCULAR VOLUME 92 fL (82-100); MONOCYTES # (AUTO) 0.3 K/uL (0.1-1.30); MONOCYTES % (AUTO) 9.2 % (2.0-12.0); NEUTROPHILS # (AUTO) 2.5 K/uL (1.8-8.9); NEUTROPHILS % (AUTO) 74.6 % (43.0-81.0); PLATELET COUNT (AUTO) 182 K/uL (150-450); RED BLOOD CELL COUNT(AUTO) 3.18 MIL/uL (4.0-5.2); WHITE BLOOD COUNT (AUTO) 3.4 K/uL (4.3-11.0)
--- NOTE | 2021-09-21 06:54 | NUR ---
RN CLOSING NOTES: RECEIVED PATIENT SLEEP IN BED , BED IN LOW POSITION, CALL LIGHTS WITHIN REACH, NO COMPLAIN OF PAIN AND DISCOMFORT AT THIS TIME, PATIENT WITH IV LINE AT GIANFRANCO ML WITH ONGOING D5NSS@60ML PER HOUR INFUSING WELL, ON NPO, FAILED SWALLOW EVALUATION, WITH RCW HD PERMACATH, CLEAN AND DRY, PATIENT KEPT CLEAN AND DRY ALL NEEDS MET ENDORSE TO INCOMING SHIFT.
[2021-09-21] MEDS: LEVOTHYROXINE SODIUM 137 MCG TABLET PO SCH (07:30)
[2021-09-21] MEDS: PANTOPRAZOLE 40 MG TABLET.DR PO SCH (07:30)
--- NOTE | 2021-09-21 07:34 | NUR ---
MS RN OPENING NOTE Patient in bed, asleep. A/O x 1. On O2 at 3 LPM, breathing evenly and unlabored. No SOB or s/s of distress noted. IV access on Left wrist #20G SL and GIANFRANCO midline infusing D5NS at 60 ml/hr. RCW permacath noted. Safety precautions in place: bed in low, locked position; siderails up x 2; call light within reach. Will continue to monitor.
[2021-09-21] MEDS: NEPRO VAN 237 ML CAN PO SCH ×2 (08:00→17:00)
[2021-09-21 08:10] VITALS: BP 120/83
[2021-09-21] MEDS: POLYVINYL ALCOHOL 15 ML BOTTLE OP SCH ×3 (08:27→17:31)
[2021-09-21] MEDS: MUPIROCIN OINT 2% 22 GM TUBE NS SCH ×2 (08:27→20:57)
[2021-09-21] MEDS: AZATHIOPRINE 50 MG TABLET PO SCH (09:00)
[2021-09-21] MEDS: PROSOURCE / PROSTAT (PYXIS) 30 ML UDC PO SCH ×2 (09:00→17:00)
[2021-09-21] MEDS: AMLODIPINE BESYLATE 2.5 MG TABLET PO SCH (09:00)
[2021-09-21] MEDS: CITRIC ACID/SODIUM CITRATE (BICITRA)15 ML UDC PO SCH ×4 (09:00→20:58)
[2021-09-21] MEDS: VITAMIN B COMP W-C 1 TAB TABLET PO SCH (09:00)
[2021-09-21] MEDS: DOCUSATE SODIUM 100 MG CAPSULE PO SCH (09:00)
[2021-09-21] MEDS: CHOLECALCIFEROL 1,000 UNIT TABLET (VIT D3) PO SCH (09:00)
[2021-09-21 10:47] LABS: CALCIUM, SERUM 8.1 mg/dL (8.5-10.1); CARBON DIOXIDE 19 mmol/L (21-32); CHLORIDE 105 mmol/L (98-107); CREATININE 5.4 mg/dL (0.6-1.3); GLUCOSE 104 mg/dL (74-106); MAGNESIUM 2.2 mg/dL (1.8-2.4); PHOSPHORUS 4.8 mg/dL (2.5-4.9); SODIUM SERUM 143 mmol/L (136-145); UREA NITROGEN, BLOOD 28 mg/dL (7-18)
[2021-09-21] MEDS: IV D5/ 0.9% NACL 1,000 ML IV PRN (15:55)
[2021-09-21 16:00] VITALS: BP 125/75
--- NOTE | 2021-09-21 19:23 | NUR ---
MS RN CLOSING NOTE Patient in bed, asleep. A/O x 1. On O2 at 3 LPM, breathing evenly and unlabored. No SOB or s/s of distress noted. IV access on Left wrist #20G SL and GIANFRANCO midline infusing D5NS at 60 ml/hr. RCW permacath noted. NPO status maintained. Patient kept clean and dry. Safety precautions in place: bed in low, locked position; siderails up x 2; call light within reach. Will endorse to assistant shift supervisor nurse for GASPER.
--- NOTE | 2021-09-21 19:30 | NUR ---
MSRN SLEEPING EASILY AROUSABLE WHEN TOUCH. TENDS TO BE COMBATIVE AT TIMES, BILATERAL SOFT WRIST RESTRAINTS IN PLACED, FREQUENTLY CHECKED FOR CIRCULATION. CLOSELY WATCHED.
[2021-09-21 20:00] VITALS: BP 162/86
--- NOTE | 2021-09-21 20:30 | NUR ---
WAYNE SPOKE TO SON VIA TELEPHONE FROM [facility]. UPDATED SON. AWARE OF PEG INSERTION TOMORROW STATED HIS SON MARIA LUISA CONSENTED PROCEDURE. WILL CALL BACK LILA.
[2021-09-21] MEDS: MIRTAZAPINE 15 MG TABLET PO SCH (20:58)
[2021-09-21] MEDS: SENNOSIDES 8.6 MG TABLET PO SCH (20:59)
--- NOTE | 2021-09-21 21:43 | NUR ---
WAYNE RECEIVED CALL FROM GRAND SON TELMA GIVING CONSENT FOR PATIENT FOR PEG INSERTION. STATED BROTHER MARIA LUISA CONSENTED PROCEDURE TOO. KEPT NPO
[2021-09-22 06:10] LABS: BASOPHILS % (AUTO) 0.9 % (0.0-2.0); EOSINOPHILS % (AUTO) 4.9 % (0.0-6.0); HEMATOCRIT 29 % (33-45); HEMOGLOBIN 9.9 g/dL (11.5-14.8); LYMPHOCYTES # (AUTO) 0.3 K/uL (0.8-4.8); LYMPHOCYTES % (AUTO) 9.6 % (20.0-44.0); MEAN CORPUSCULAR HGB CONC 34 g/dl (31.0-36.0); MEAN CORPUSCULAR VOLUME 93 fL (82-100); MONOCYTES # (AUTO) 0.2 K/uL (0.1-1.30); MONOCYTES % (AUTO) 6.8 % (2.0-12.0); NEUTROPHILS # (AUTO) 2.8 K/uL (1.8-8.9); NEUTROPHILS % (AUTO) 77.8 % (43.0-81.0); PLATELET COUNT (AUTO) 160 K/uL (150-450); RED BLOOD CELL COUNT(AUTO) 3.16 MIL/uL (4.0-5.2); WHITE BLOOD COUNT (AUTO) 3.6 K/uL (4.3-11.0)
--- NOTE | 2021-09-22 06:10 | NUR ---
MSRN REMAINS COAT FITTER FOR PEG TODAY AT 0830. AM CARE DONE. IVF CONTINUED.
[2021-09-22] MEDS: LEVOTHYROXINE SODIUM 137 MCG TABLET PO SCH (07:30)
[2021-09-22] MEDS: PANTOPRAZOLE 40 MG TABLET.DR PO SCH (07:30)
[2021-09-22 08:00] VITALS: BP 179/70
[2021-09-22] MEDS: NEPRO VAN 237 ML CAN PO SCH ×2 (08:00→17:00)
--- NOTE | 2021-09-22 08:04 | NUR ---
RN OPENING NOTE PATIENT IN BED RESTING AWAKE, A/OX1, NO S/S OF PAIN NOTED AT THIS TIME. ON 3L OXYGEN VIA NC, NO DISTRESS OR SHORTNESS OF BREATH NOTED. IV ACCESS GIANFRANCO MIDLINE INTACT, PATENT AND FLUSHING WELL. FALL AND SAFETY MEASURES IN PLACE, BED ALARM ON. BED IN LOW AND LOCK POSITION, CALL LIGHT AND TABLE WITHIN EASY REACH, SIDE RAILS UP X2. WILL CONTINUE TO MONITOR.
--- NOTE | 2021-09-22 08:15 | NUR ---
RN NOTE PATIENT IS NOT IN HER ROOM, OR NURSE TOOK HER FOR SURGERY, G-TUBE PLACEMENT.
[2021-09-22] MEDS ORDERED: CLINDAMYCIN PHOSPHATE IV 600 MG/4 ML VIAL ONE (08:49)
[2021-09-22] MEDS: PROSOURCE / PROSTAT (PYXIS) 30 ML UDC PO SCH ×2 (09:00→17:00)
[2021-09-22] MEDS: CHOLECALCIFEROL 1,000 UNIT TABLET (VIT D3) PO SCH (09:00)
[2021-09-22] MEDS: AMLODIPINE BESYLATE 2.5 MG TABLET PO SCH (09:00)
[2021-09-22] MEDS: AZATHIOPRINE 50 MG TABLET PO SCH (09:00)
[2021-09-22] MEDS: DOCUSATE SODIUM 100 MG CAPSULE PO SCH (09:00)
[2021-09-22] MEDS: VITAMIN B COMP W-C 1 TAB TABLET PO SCH (09:00)
[2021-09-22] MEDS: CITRIC ACID/SODIUM CITRATE (BICITRA)15 ML UDC PO SCH ×4 (09:00→20:17)
--- NOTE | 2021-09-22 09:00 | NUR ---
RN NOTE PATIENT MORNING MEDICATIONS WAS NOT GIVEN BECAUSE PATIENT IS NOT IN UNIT PATIENT WENT FOR SURGERY, G-TUBE PLACEMENT.
--- NOTE | 2021-09-22 10:00 | NUR ---
RN NOTE PATIENT IS IN HER ROOM, SLEEPING, PATIENT IS BACK FROM SURGERY. VITAS SIGNS TAKEN, STABLE. WILL CONTINUE TO MONITOR.
[2021-09-22] MEDS: IV D5/ 0.9% NACL 1,000 ML IV PRN (10:12)
[2021-09-22] MEDS: POLYVINYL ALCOHOL 15 ML BOTTLE OP SCH ×3 (10:29→18:05)
[2021-09-22] MEDS: MUPIROCIN OINT 2% 22 GM TUBE NS SCH ×2 (10:30→20:16)
[2021-09-22 12:32] LABS: CARBON DIOXIDE 25 mmol/L (21-32); CHLORIDE 111 mmol/L (98-107); CREATININE 6.4 mg/dL (0.6-1.3); GLUCOSE 115 mg/dL (74-106); MAGNESIUM 2.1 mg/dL (1.8-2.4); PHOSPHORUS 4.2 mg/dL (2.5-4.9); POTASSIUM 4.1 mmol/L (3.5-5.1); SODIUM SERUM 145 mmol/L (136-145); UREA NITROGEN, BLOOD 29 mg/dL (7-18)
[2021-09-22 16:00] VITALS: BP 164/78
--- NOTE | 2021-09-22 16:00 | NUR ---
RN NOTE PATIENT HAD DIALYSIS TODAY, OUTPUT 1.5L.
--- NOTE | 2021-09-22 19:12 | NUR ---
RN CLOSING NOTE PATIENT IN BED RESTING AWAKE, A/OX1, NO S/S OF PAIN NOTED AT THIS TIME. ON 3L OXYGEN VIA NC, NO DISTRESS OR SHORTNESS OF BREATH NOTED. IV ACCESS GIANFRANCO MIDLINE INTACT, PATENT AND FLUSHING WELL. PATIENT GOT A G-TUBE PLACEMENT TODAY, NPO, START TUBE FEEDING IN THE MORNING. FALL AND SAFETY MEASURES IN PLACE, BED ALARM ON. BED IN LOW AND LOCK POSITION, CALL LIGHT AND TABLE WITHIN EASY REACH, SIDE RAILS UP X2. WILL ENDORSE TO FAX MACHINE REPAIRER.
--- NOTE | 2021-09-22 19:50 | NUR ---
RN OPENING NOTE Patient is A&Ox1 awake and alert. Currently with pearl. soft wrist restraints, pulses good, skin WNL. Still attempting to fidget with lines. Abdominal binder on because pt. had G-tube placement this AM, G-tube in place without sign of complication at this time. Patient maintains NPO status. GIANFRANCO midline intact and patent running D5NS at 60cc/hr. RCW permacath intact and patent as well. Pt to start on TF in AM. Will continue to monitor.
[2021-09-22 20:00] VITALS: BP 174/83
[2021-09-22 20:27] VITALS: BP 165/87
[2021-09-22] MEDS: MIRTAZAPINE 15 MG TABLET PO SCH (21:32)
[2021-09-22] MEDS: SENNOSIDES 8.6 MG TABLET PO SCH (21:32)
[2021-09-23] MEDS: IV D5/ 0.9% NACL 1,000 ML IV PRN (02:29)
--- NOTE | 2021-09-23 06:10 | NUR ---
RN CLOSING NOTES Patient is A&Ox1 confused, attempting to pull at tubes and lines. G-tube in place with abdominal binder -flushed and patent will start GT feeding when formula is delivered to floor. q15min safety checks and q2h restraint release and skin/perfusion check. GIANFRANCO midline D5NS running at 60mL/hr. Currently in bed resting in no signs of distress.
[2021-09-23] MEDS: PANTOPRAZOLE 40 MG TABLET.DR PO SCH (06:54)
[2021-09-23] MEDS: LEVOTHYROXINE SODIUM 137 MCG TABLET PO SCH (06:54)
[2021-09-23 07:06] LABS: BASOPHILS % (AUTO) 0.8 % (0.0-2.0); EOSINOPHILS % (AUTO) 2.6 % (0.0-6.0); HEMATOCRIT 30 % (33-45); HEMOGLOBIN 9.9 g/dL (11.5-14.8); LYMPHOCYTES # (AUTO) 0.4 K/uL (0.8-4.8); LYMPHOCYTES % (AUTO) 12.7 % (20.0-44.0); MEAN CORPUSCULAR HGB CONC 34 g/dl (31.0-36.0); MEAN CORPUSCULAR VOLUME 94 fL (82-100); MONOCYTES # (AUTO) 0.3 K/uL (0.1-1.30); MONOCYTES % (AUTO) 7.7 % (2.0-12.0); NEUTROPHILS # (AUTO) 2.6 K/uL (1.8-8.9); NEUTROPHILS % (AUTO) 76.2 % (43.0-81.0); PLATELET COUNT (AUTO) 143 K/uL (150-450); RED BLOOD CELL COUNT(AUTO) 3.15 MIL/uL (4.0-5.2); WHITE BLOOD COUNT (AUTO) 3.5 K/uL (4.3-11.0)
[2021-09-23 08:02] LABS: CALCIUM, SERUM 8.1 mg/dL (8.5-10.1); CARBON DIOXIDE 23 mmol/L (21-32); CHLORIDE 111 mmol/L (98-107); CREATININE 4.2 mg/dL (0.6-1.3); GLUCOSE 108 mg/dL (74-106); MAGNESIUM 1.8 mg/dL (1.8-2.4); PHOSPHORUS 2.8 mg/dL (2.5-4.9); POTASSIUM 3.7 mmol/L (3.5-5.1); SODIUM SERUM 142 mmol/L (136-145); UREA NITROGEN, BLOOD 15 mg/dL (7-18)
[2021-09-23] MEDS: CITRIC ACID/SODIUM CITRATE (BICITRA)15 ML UDC PO SCH ×2 (09:07→13:18)
[2021-09-23] MEDS: DOCUSATE SODIUM 100 MG CAPSULE PO SCH (09:08)
[2021-09-23] MEDS: AZATHIOPRINE 50 MG TABLET PO SCH (09:08)
[2021-09-23] MEDS: PROSOURCE / PROSTAT (PYXIS) 30 ML UDC PO SCH (09:08)
[2021-09-23] MEDS: CHOLECALCIFEROL 1,000 UNIT TABLET (VIT D3) PO SCH (09:08)
[2021-09-23] MEDS: AMLODIPINE BESYLATE 2.5 MG TABLET PO SCH (09:08)
[2021-09-23] MEDS: VITAMIN B COMP W-C 1 TAB TABLET PO SCH (09:08)
[2021-09-23] MEDS: MUPIROCIN OINT 2% 22 GM TUBE NS SCH (09:09)
[2021-09-23] MEDS: POLYVINYL ALCOHOL 15 ML BOTTLE OP SCH ×2 (09:09→13:19)
[2021-09-23] MEDS ORDERED: NEPRO 1,000 ML BOTTLE GT SCH (09:30)
[2021-09-23] MEDS ORDERED: HYDR-4076 GT (13:15)
[2021-09-23] MEDS ORDERED: MIRT-90 GT (13:15)
[2021-09-23] MEDS ORDERED: CHOL100040 GT (13:15)
[2021-09-23] MEDS ORDERED: FOLI0.8T2 GT (13:15)
[2021-09-23] MEDS ORDERED: LEVO50TA8 GT (13:15)
[2021-09-23] MEDS ORDERED: Nepro GT (13:15)
[2021-09-23] MEDS ORDERED: SEVE800T8 GT (13:15)
[2021-09-23] MEDS ORDERED: AZAT50TA18 GT (13:15)
[2021-09-23] MEDS ORDERED: CYAN-51 GT (13:15)
[2021-09-23] MEDS ORDERED: AMLO2.5T2 GT (13:15)
[2021-09-23] MEDS ORDERED: AMIN887L7 GT (13:15)
[2021-09-23] MEDS ORDERED: ALPR1TAB2 GT (13:15)
[2021-09-23 16:00] VITALS: BP 154/88
== END 2021-09-23 17:36 | DRG 291 ==
LOC: ER 12:46 → TRANSITION 20:39 → TELE 09-16 02:52 → MED 09-16 03:59
PROVIDERS: ADMIT Family Medicine; ATTEND Nurse Practitioner Acute Care
PROC: 05H533Z Insertion of Infusion Device into Right Subclavian Vein, Percutaneous Approach (ICD-10-PCS; 2021-09-15)
PROC: B546ZZA Ultrasonography of Right Subclavian Vein, Guidance (ICD-10-PCS; 2021-09-15)
PROC: 5A1D70Z Performance of Urinary Filtration, Intermittent, Less than 6 Hours Per Day (ICD-10-PCS; 2021-09-16)
PROC: 0DH63UZ Insertion of Feeding Device into Stomach, Percutaneous Approach (ICD-10-PCS; principal; 2021-09-22)
DX: I13.2 Hypertensive heart and chronic kidney disease with heart failure and with stage 5 chronic kidney disease, or end stage renal disease (principal); N18.6 End stage renal disease; G93.41 Metabolic encephalopathy; E44.1 Mild protein-calorie malnutrition; Z68.1 Body mass index [BMI] 19.9 or less, adult; I50.32 Chronic diastolic (congestive) heart failure; K21.9 Gastro-esophageal reflux disease without esophagitis; Z99.2 Dependence on renal dialysis; D72.819 Decreased white blood cell count, unspecified; F03.90 Unspecified dementia, unspecified severity, without behavioral disturbance, psychotic disturbance, mood disturbance, and anxiety; E03.9 Hypothyroidism, unspecified; E88.09 Other disorders of plasma-protein metabolism, not elsewhere classified; M19.90 Unspecified osteoarthritis, unspecified site; Z20.822 Contact with and (suspected) exposure to COVID-19; F32.A Depression, unspecified; K29.70 Gastritis, unspecified, without bleeding; R26.9 Unspecified abnormalities of gait and mobility; R13.10 Dysphagia, unspecified; D63.1 Anemia in chronic kidney disease
CPT/HCPCS: 36410; 36415; 43246; 70450-TC; 70551-TC; 71045-TC; 80048-TC; 80076-TC; 82962-TC; 83605-TC; 83735-TC; 84100-TC; 85025-TC; 85610-TC; 85730-TC; 86706; 87040-TC; 87081-TC; 87340; 90935-TC; 92526; 92611-TC; 95819-TC; C9803; G0378; J0696; J2060; J2405; J2704; J3370; J3490; J7030; J7042; J7060; J7500